=== PATIENT | male | born 1965 | race African-American/Black ===

== ENCOUNTER → 2020-03-03 12:46 | Outpatient (BNV) | payer OTHER, MEDICAID, SELFPAY | PROVIDERS: PCP Internal Medicine; Visit Provider Internal Medicine | DX: C18.2 Malignant neoplasm of ascending colon (principal); C77.2 Secondary and unspecified malignant neoplasm of intra-abdominal lymph nodes; C61 Malignant neoplasm of prostate | CPT/HCPCS: 99212; 99213; 99214; 99215; G2211 ==

== ENCOUNTER 2020-11-03 07:54 | Outpatient (REF) | payer OTHER, SELFPAY ==
--- NOTE | ~2020-11-03 | CT_ITS ---
EXAMINATION: CT ABDOMEN AND PELVIS WITH CONTRAST CLINICAL INFORMATION: Colon cancer. Assess response to treatment. COMPARISON: Previous CT scans of the abdomen and pelvis most recent October 2019 TECHNIQUE: Multidetector volumetric images were obtained from the superior aspect of the liver through the pubic symphysis following administration 85 mL of Omnipaque 350 intravenous contrast. Sagittal and coronal reformatted images were obtained on the technologist's workstation. Oral contrast: Yes This CT examination was performed using dose optimization techniques as appropriate, variously including the following: *Automated exposure control *Adjustment of mA and/or kV according to patient size (this includes techniques or standardized protocols for targeted exams where dose is matched to indication/reason for exam; i.e. extremities or head) *Use of iterative reconstruction technique DLP: 594 mGy-cm FINDINGS: LUNG BASES: The visualized lung bases are unremarkable. LIVER, GALLBLADDER, AND BILIARY TREE: The liver is normal in size, shape, and attenuation. No focal hepatic lesion or biliary ductal dilatation is present. The gallbladder is unremarkable with no evidence of radiopaque gallstones, gallbladder wall thickening, or obvious pericholecystic inflammatory changes. PANCREAS: Unremarkable. SPLEEN: Unremarkable. ADRENAL GLANDS: Unremarkable. KIDNEYS AND URETERS: There are small left renal cysts. Kidneys are otherwise unremarkable. BLADDER: Distended. There may be mild diffuse bladder wall thickening. GASTROINTESTINAL TRACT: There are postsurgical changes following right colectomy. Small and large bowel is otherwise unremarkable. The appendix is unremarkable. The previously identified mesenteric mass is probably representing lymphadenopathy is no longer seen. There is mild residual stranding of the mesenteric fat. ABDOMINAL WALL: No significant hernia is appreciated. LYMPH NODES: No adenopathy. No ascites. VASCULAR: Unremarkable. PELVIC VISCERA: The prostate gland is slightly enlarged measuring 4 x 5.5 cm. OSSEOUS STRUCTURES: Unremarkable. CT/CT abdomen pelvis w con IMPRESSION: Postoperative changes following right colectomy. Previously identified mesenteric masses probably representing lymphadenopathy on most recent exam October 2019 are no longer seen. Left renal cyst. Slightly enlarged prostate gland. Question mild diffuse lateral wall thickening.
[2020-11-03] MEDS: iohexoL 350 MG/ML 100 ML INFUS..BTL IV (11:19)
[2020-11-03] MEDS: Barium Sulfate Oral (Mocha) 450 ML ORAL.SUSP 900 ML PO (11:20)
== END 2020-11-03 07:55 | disposition home or self-care (01) ==
LOC: HO.CT 07:54
PROVIDERS: Visit Provider Internal Medicine
DX: C18.2 Malignant neoplasm of ascending colon (principal); C77.2 Secondary and unspecified malignant neoplasm of intra-abdominal lymph nodes
CPT/HCPCS: 74177; Q9967

== ENCOUNTER 2020-12-30 16:00 | Outpatient (REF) | payer OTHER, SELFPAY ==
[2020-12-30 16:32] LABS: MANUAL DIFF FLAG NO
[2020-12-30 16:41] LABS: Basophils Absolute Auto 0.1 X10*3/uL (0.0-0.2); Basophils Percent Auto 0.9 % (0-2); Eosinophils Absolute Auto 0.3 X10*3/uL (0.0-0.4); Eosinophils Percent Auto 4.7 % (0-4); Hematocrit 43.7 % (42-52); Hemoglobin 14.2 g/dl (14.0-18.0); Imm Gran Abs Auto 0.03 X10*3/uL (0.00-0.03); Imm Gran Pct Auto 0.6 % (0.0-0.4); Lymphocytes Absolute Auto 1.8 X10*3/uL (1.2-4.9); Mean Corpuscular HGB Conc 32.5 g/dl (31.0-36.0); Mean Platelet Volume 9.5 fL (9.4-12.4); Monocytes Absolute Auto 0.5 X10*3/uL (0.1-1.2); Monocytes Percent Auto 8.7 % (2-11); Neutrophils Absolute Auto 2.7 X10*3/uL (2.0-8.3); Neutrophils Percent Auto 51.1 % (45-73); Platelet Count 257 X10*3/uL (160-400); Red Blood Count 5.08 X10*6/uL (4.60-5.80); Red Cell Distribution Width 13.3 % (11.0-16.0); White Blood Count 5.3 X10*3/uL (4.8-10.8)
[2020-12-30 17:11] LABS: Alanine Aminotransferase 22 U/L (0-40); Albumin Level 4.2 g/dL (3.5-5.0); Alkaline Phosphatase 60 U/L (39-117); Anion Gap 16 (12-20); Aspartate Amino Transferase 23 U/L (5-37); Bilirubin Total 0.6 mg/dL (0.0-1.0); Blood Urea Nitrogen 14 mg/dL (9-16); Carbon Dioxide 25 mmol/L (22-29); Chloride 104 mmol/L (96-108); Estimated Glomerular Filt Rate > 60; Glucose Random 82 mg/dL (60-115); Potassium 4.5 mmol/L (3.3-5.1); Sodium 140 mmol/L (135-145); Total Protein 7.2 g/dL (6.5-8.0)
== END 2020-12-30 16:01 | disposition home or self-care (01) ==
LOC: HO.LAB 16:00
PROVIDERS: PCP Internal Medicine; Visit Provider Internal Medicine
DX: C18.2 Malignant neoplasm of ascending colon (principal); C77.2 Secondary and unspecified malignant neoplasm of intra-abdominal lymph nodes
CPT/HCPCS: 36415; 80053; 85025

== ENCOUNTER 2021-08-26 06:03 | Outpatient (REF) | payer OTHER, SELFPAY ==
--- NOTE | ~2021-08-26 | CT_ITS ---
EXAMINATION: CT ABDOMEN AND PELVIS WITH CONTRAST CLINICAL INFORMATION: Colon cancer. Restaging. COMPARISON: Previous CT of the abdomen and pelvis most recent October 2020 TECHNIQUE: Multidetector volumetric images were obtained from the superior aspect of the liver through the pubic symphysis following administration 85 mL of Omnipaque 350 intravenous contrast. Sagittal and coronal reformatted images were obtained on the technologist's workstation. Oral contrast: Yes This CT examination was performed using dose optimization techniques as appropriate, variously including the following: *Automated exposure control *Adjustment of mA and/or kV according to patient size (this includes techniques or standardized protocols for targeted exams where dose is matched to indication/reason for exam; i.e. extremities or head) *Use of iterative reconstruction technique DLP: 810 mGy-cm FINDINGS: LIVER, GALLBLADDER, AND BILIARY TREE: The liver is normal in size, shape, and attenuation. No focal hepatic lesion or biliary ductal dilatation is present. The gallbladder is unremarkable with no evidence of radiopaque gallstones, gallbladder wall thickening, or obvious pericholecystic inflammatory changes. PANCREAS: Unremarkable. SPLEEN: Unremarkable. ADRENAL GLANDS: Unremarkable. KIDNEYS AND URETERS: The kidneys are normal in size, shape, and attenuation. No hydronephrosis, hydroureter, or calculi seen. There are small bilateral renal cysts that are stable.. No imaging follow-up needed. BLADDER: Unremarkable. GASTROINTESTINAL TRACT: There are postsurgical changes from right colectomy. Small and large bowel is otherwise unremarkable. The stomach is unremarkable. ABDOMINAL WALL: There is a small umbilical hernia containing fat. LYMPH NODES: There are small, small bowel mesentery lymph nodes. There is abnormal low attenuation irregularly-shaped soft tissue adjacent to the ileocolic branch of the SMV for example coronal reconstructed image 41 series 15. There is a stranding of the fat in the small bowel mesentery. VASCULAR: Unremarkable. PELVIC VISCERA: The prostate gland is enlarged OSSEOUS STRUCTURES: Unremarkable. CT/CT abdomen pelvis w con IMPRESSION: Stranding of the fat in the small bowel mesentery and small, small bowel mesentery lymph nodes. Angular shaped low-attenuation soft tissue at the root of the small bowel mesentery near the ileocolic branch of the SMV. Bilateral renal cysts. Slightly enlarged prostate gland. Fleischner guidelines were followed.
--- NOTE | ~2021-08-26 | CT_ITS ---
EXAMINATION: CT CHEST WITH CONTRAST CLINICAL INFORMATION: Restaging colon cancer COMPARISON: Previous chest CT most recent October 2019 TECHNIQUE: Multidetector volumetric CT imaging of the chest was obtained after the administration of 85 mL of Omnipaque 350 intravenous contrast without immediate adverse reactions. Axial MIP volume rendering provided. Sagittal and coronal reformatted images were obtained. This CT examination was performed using dose optimization techniques as appropriate, variously including the following: *Automated exposure control *Adjustment of mA and/or kV according to patient size (this includes techniques or standardized protocols for targeted exams where dose is matched to indication/reason for exam; i.e. extremities or head) *Use of iterative reconstruction technique DLP: 484 mGy-cm FINDINGS: CAR EXAMINER: Unremarkable LUNGS: There is a 2 mm right upper lobe nodules axial image 104 series 7 that is stable. The lungs are otherwise clear. MEDIASTINUM: There is a right thyroid nodule that is stable. There are no enlarged hilar or mediastinal lymph nodes. Heart does not appear enlarged. There is no pericardial effusion. There is a right jugular port with tip projecting over the SVC. PLEURA: There is no pleural effusion. No pleural mass or thickening. AXILLA: No lymphadenopathy. UPPER ABDOMEN: See CT of the abdomen and pelvis report from the same day OSSEOUS STRUCTURES: There are degenerative changes of the spine. CT/CT chest w con IMPRESSION: Stable 2 mm right upper lobe nodule. Fleischner guidelines were followed.
[2021-08-26] MEDS: iohexoL 350 MG/ML 100 ML INFUS..BTL IV (08:43)
== END 2021-08-26 06:04 | disposition home or self-care (01) ==
LOC: HO.CT 06:03
PROVIDERS: PCP Internal Medicine; Visit Provider Internal Medicine
DX: C18.9 Malignant neoplasm of colon, unspecified (principal); C77.2 Secondary and unspecified malignant neoplasm of intra-abdominal lymph nodes
CPT/HCPCS: 71260; 74177; Q9967

== ENCOUNTER 2023-10-31 09:53 | Outpatient (AMB) | payer OTHER, SELFPAY ==
--- NOTE | 2023-10-31 09:59 | A.OFFVIS_ITS ---
Intake Visit Reasons: elevated PSA- STAT Appt from Dr. Elias Intake Note: New Patient presents today for initial visit to establish treatment for : Elevated PSA PSA: 10/23/23: 58.09 Urology Medications: none Allergies to Antibiotic: none Blood Thinner: none Oracle Programmer Required: No Accompanied by: Self / Same As Patient Allergies No Known Allergies [No Known Allergies*] Allergy (Verified 10/31/23 10:50) Medication List - Last Reconciled 10/31/23 by LEXII Bowen- bicalutamide 50 mg PO DAILY 30 days finasteride 5 mg PO DAILY 90 days hydrochlorothiazide 12.5 mg PO DAILY levofloxacin 500 mg PO daily 3 days lisinopril 20 mg PO DAILY HPI Comments Details: Toney is a very pleasant 58-year-old male patient of Dr. Weeks. He has a past medical history of colon cancer, iron deficiency anemia, pulmonary embolism, and hypertension. He presents to the office today as a new patient for an elevated PSA. In discussion with the patient today he reports having followed up with Oncology for a bone scan given his history of colon cancer at which time recommendations were made for urology referral due to suspicion for prostate cancer on recent PET/CT scan. A PSA was obtained. These results were reviewed with the patient today 11/04 58.1. He denies any known family history of prostate cancer. NENA performed NENA- smooth, no masses or nodules palpated. When asked he currently denies any bothersome urinary issues or concerns. He denies urinary urgency, urinary frequency, incontinence, nocturia, hematuria, dysuria, foul smelling urine, changes to urinary stream, f lank pain, fever, and or chills. In office urinalysis results reviewed with the patient today. Discussed at length potential causes for elevated PSA. Discussed prostate biopsy. 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 He otherwise offers no other issues or concerns at this time. [facility] Medical History Iron deficiency anemia Colon cancer metastasized to intra-abdominal lymph node Pulmonary emboli Hypertension Surgical History S/P right hemicolectomy Family History Father Throat cancer Mother Breast cancer Social History Household Members: None Housing: House Are you a primary care services manager to a significant other at home: No Do you presently have visiting nurse or other home services: No service: No Current occupational status: employed Current occupation: teacher Review of Systems Const All systems reviewed & are unremarkable except as noted in HPI and below Physical Exam Const General: cooperative, healthy appearing, comfortable, no acute distress, well developed, alert and awake Nutritional Appearance: overweight Orientation/consciousness: patient oriented x3 Limitations: no limitations HEENT Head: Yes normal to inspection, Yes normocephalic and Yes atraumatic Ears: hearing grossly normal bilaterally Eyes General: appearance normal, both eyes and all related structures Neck Neck: Yes normal visual inspection and Yes trachea midline Chest Chest palpation & inspection: normal inspection of the chest Resp Effort & Inspection: normal respiratory effort and able to speak in complete sentences Cardio Rate: regular rate GI Inspection: Yes normal to inspection General: Yes no CVA tenderness Back/Spine/Pelvis Back: no CVA tenderness Skin General skin exam: no rashes or lesions noted Neuro General: patient oriented x3 Extrem General: Yes normal to inspection Psych Appearance: grossly normal and well kempt Mental Status: mental status grossly normal Speech and movement: Normal speech and movement present and Clear speech present Affect: normal affect Attitude: cooperative Thought process: Normal thought process present Thought content: Normal thought content present Insight: Fair insight present (Psych) Judgement: Fair judgement present (Psych) Results AMB Urinalysis, Automated UA Leukoctes 0 Erika/uL Last Edit by Sb Chicas on 10/31/23 10:23 UA Nitrite Negative Last Edit by Sb Chicas on 10/31/23 10:23 UA Urobilinogen 0.2 mg/dL Last Edit by Sb Chcias on 10/31/23 10:23 UA Protein 0 mg/dL Last Edit by Sb Chicas on 10/31/23 10:23 UA pH 5.5 Last Edit by Sb Chicas on 10/31/23 10:23 UA Blood 0 Talha/uL Last Edit by Sb Chicas on 10/31/23 10:23 UA Specific [place] 1.015 Last Edit by Sb Chicas on 10/31/23 10:23 UA Ketone Negative Last Edit by Fadiconnierobinson Valdezluis on 10/31/23 10:23 UA Bilirubin 0 mg/dL Last Edit by Fadiconnierobinson Valdezluis on 10/31/23 10:23 UA Glucose 0 mg/dL Last Edit by Fadijanel Courtneyluis on 10/31/23 10:23 Results Reviewed Results Reviewed: Laboratory Last Values Urine pH (Auto) 5.5 10/31/23 10:14 Specific [place] (Auto) 1.015 10/31/23 10:14 Urine Protein (Auto) 0 mg/dL 10/31/23 10:14 Glucose (UA)(Auto) 0 mg/dL 10/31/23 10:14 Urine Ketones (Auto) Negative 10/31/23 10:14 Urine Blood (Auto) 0 Talha/uL 10/31/23 10:14 Urine Nitrite (Auto) Negative 10/31/23 10:14 Urine Bilirubin (Auto) 0 mg/dL 10/31/23 10:14 Urine Urobilinogen (Auto) 0.2 mg/dL 10/31/23 10:14 Leukocyte Esterase (Auto) 0 Erika/uL 10/31/23 10:14 Assessment & Plan Assessment & Plan (1) Elevated PSA: Code(s): R97.20 - Elevated prostate specific antigen [PSA] Category: Medical Plan: Plan Risks and benefits regarding trans rectal ultrasound with prostate biopsy were discussed.? Options of continued surveillance, no treatment and biopsy were offered. The risks include but are not limited to, urinary tract infection, sepsis, difficulty urinating, bleeding into the rectum or bladder that requires intervention and transfusion,and failure to diagnose prostate cancer. The patient understands the options and the risks involved. They wish to proceed. Printed information was provided to ensure he remains off anticoagulation for the appropriate length of time. He may require cardiology or PCP clearance.? An antibiotic will be administered prior to, and following the procedure Plan In office urinalysis results reviewed with the patient today; as noted above. Patient currently denies any bothersome urinary issues or concerns. He reports be happy with current voiding parameters. Discussed at length potential causes for elevated PSA. Recent PET scan results reviewed with the patient today. Discussed prostate biopsy; this was discussed at length; risks and benefits of this intervention was discussed. All questions were answered Prescription provided for antibiotic therapy day before, day of, and day after surgical procedure. Start bicalutamide as discussed and prescribed Start finasteride as discussed and prescribed. Will arrange for prostate biopsy Follow-up status post doctor's orders; or sooner with any issues, concerns, and or questions. Orders: Orders AMB Urinalysis Automated Today Z13.9 - Encounter for screening, unspecified Medications: New bicalutamide 50 mg PO DAILY 30 days 30 tabs 0RF C61 - Malignant neoplasm of prostate levofloxacin take 1 tablet day before procedure, 1 tablet day of procedure and 1 tablet day after procedure 500 mg PO daily 3 days 3 tabs 0RF finasteride 5 mg PO DAILY 90 days 90 tabs 1RF Patient Instructions: The patient had an opportunity to ask questions regarding the treatment plan. All questions were answered. Physical exam, labs, and imaging were discussed and reviewed in detail. As well as risks, benefits, and discussion of treatment choices. No major barriers to understanding were identified. The patient expressed understanding and agreement with the above treatment plan. The patient was made aware they should contact our office by phone for worsening of their current condition, the appearance of new symptoms, or with any questions or concerns. Compliance is encouraged with any medications and follow up testing that is ordered. It is a privilege to be allowed the opportunity to participate in? your urological care.? Again, if you have any questions or concerns If you have any questions or concerns please do not hesitate to contact me. The office is [phone]. This note is constructed using voice recognition software. While every effort has been made to ensure accuracy jacquard loom weaver errors may have been included. Yours sincerely, MAHSA Bowen Coding Level of Care Code New Pt Level 4 (00621) Diagnoses Elevated PSA R97.20
== END 2023-10-31 10:41 | disposition home or self-care (01) ==
PROVIDERS: PCP Internal Medicine; Visit Provider Nurse Practitioner Family
DX: Z13.9 Encounter for screening, unspecified (principal); R97.20 Elevated prostate specific antigen [PSA]
CPT/HCPCS: 99204

== ENCOUNTER → 2023-10-31 09:53 | Outpatient (BNVA) | payer OTHER, SELFPAY | PROVIDERS: PCP Internal Medicine; Visit Provider Nurse Practitioner Family | DX: R97.20 Elevated prostate specific antigen [PSA] (principal) | CPT/HCPCS: 81003; 99202 ==

== ENCOUNTER 2023-11-30 07:52 | Outpatient (REF) | payer OTHER, SELFPAY ==
[2023-11-30] MEDS: Lidocaine HCl 1 % MPF 5 ML VIAL 15 ML SUBCUT (09:19)
--- NOTE | 2023-11-30 10:08 | W.PM.OPN ---
Operative Note Operative Note Date of Service: 11/30/23 Narrative: PreOperative Diagnosis:? ? Elevated PSA Post Operative Diagnosis:??Elevated PSA Procedure:?1. Transrectal ultrasound guided biopsy of the prostate 12 core 2. Transrectal ultrasound measurement of prostate 3. Transrectal ultrasound guided pudendal nerve block Surgeon:?Dr Mayco Meier Anesthesia:? Local Indications for procedure: Elevated PSA Procedure: Preoperative antibiotics confirmed. After informed consent was verified the patient was placed on the procedure table in left lateral position. Patient identity confirmed. Safety pause time-out performed. Digital rectal exam performed to dilate rectal sphincter, iodine mixed with lubricant jelly 30 cc placed per rectum. Ultrasound probe was placed per rectum. The prostate was visualized. The prostate was measured width 5.18 cm, height 3,72 cm, length 4.30 cm with a volume of 43.3 mL. An ultrasound guided pudendal nerve block was performed using 15 cc of 1% lidocaine. A 12 core biopsy was performed from the left base, left mid, left apex and right base, mid, apex 2 biopsies from each section. The ultrasound probe was removed and digital palpation of the prostate for 1-2 minutes for hemostasis was performed. The patient tolerated the procedure well. Complications: None
== END 2023-11-30 07:53 | disposition home or self-care (01) ==
LOC: HO.US 07:52
PROVIDERS: PCP Internal Medicine; Visit Provider Urology
DX: R97.20 Elevated prostate specific antigen [PSA] (principal)
CPT/HCPCS: 55700; 76942; 88305; 88344

== ENCOUNTER → 2023-11-30 07:52 | Outpatient (BNV) | payer OTHER, SELFPAY | PROVIDERS: PCP Internal Medicine; Visit Provider Urology | DX: R97.20 Elevated prostate specific antigen [PSA] (principal) | CPT/HCPCS: 55700; 76942 ==

== ENCOUNTER 2023-12-14 09:04 | Outpatient (AMB) | payer OTHER, SELFPAY ==
--- NOTE | 2023-12-14 09:09 | A.OFFVIS_ITS ---
Intake Visit Reasons: prostate biopsy results Intake Note: Patient is present for Prostate biopsy and to discuss medications Urology Med: Bicalutamide, Finasteride Patient states he has finished his 30 day Bicalutamide. He would like to know if he should continue finasteride Sign Language Interpreter Required: No Accompanied by: Self / Same As Patient Allergies No Known Allergies [No Known Allergies*] Allergy (Verified 10/31/23 10:50) Medication List - Last Reconciled 12/14/23 by Mayco Meier MD bicalutamide 50 mg PO DAILY 30 days hydrochlorothiazide 12.5 mg PO DAILY levofloxacin 500 mg PO daily 3 days lisinopril 20 mg PO DAILY HPI Comments Details: 12/13/23--Toney is here to discuss prostate biopsy results. Status post prostate biopsy 11/30/23. Prostate adenocarcinoma on the right and left Wilian score 3+3=7 grade group 2. The patient has a history of colon cancer and has had colon resection followed by chemo and immunotherapy he had a PET-CT in October that had uptake in the prostate, no other metastatic lesions noted. He was started on casodex 50 mg by RUBBER TILE FLOOR LAYER. Will order firmagon SC, and refer to Dr Barcenas. Will check MRI in 2 months to eval for extraprostatic extension. Review of chart. 10/31/23--Toney is a very pleasant 58-year-old male patient of Dr. Weeks. He has a past medical history of colon cancer, iron deficiency anemia, pulmonary embolism, and hypertension. He presents to the office today as a new patient for an elevated PSA. In discussion with the patient today he reports having followed up with Oncology for a bone scan given his history of colon cancer at which time recommendations were made for urology referral due to suspicion for prostate cancer on recent PET/CT scan. A PSA was obtained. These results were reviewed with the patient today 11/04-- 58.1 ng/mL. He denies any known family history of prostate cancer. NENA performed NENA- smooth, no masses or nodules palpated. When asked he currently denies any bothersome urinary issues or concerns. He denies urinary urgency, urinary frequency, incontinence, nocturia, hematuria, dysuria, foul smelling urine, changes to urinary stream, flank pain, fever, and or chills. In office urinalysis results reviewed with the patient today. Discussed at length potential causes for elevated PSA. Discussed prostate biopsy. 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 He otherwise offers no other issues or concerns at this time. [facility] Medical History Iron deficiency anemia Colon cancer metastasized to intra-abdominal lymph node Pulmonary emboli Hypertension Surgical History S/P right hemicolectomy Family History Father Throat cancer Mother Breast cancer Social History Household Members: None Housing: House Are you a primary healthcare educator to a significant other at home: No Do you presently have visiting nurse or other home services: No service: No Current occupational status: employed Current occupation: teacher Review of Systems Const All systems reviewed & are unremarkable except as noted in HPI and below Reports no additional complaints Eyes Reports no additional complaints ENT Reports no additional complaints Card Reports no additional complaints Resp Reports no additional complaints GI Reports no additional complaints Reports as per HPI Musc Reports no additional complaints Skin/Breast Reports system reviewed and no additional complaints, except as documented Neuro Reports no additional complaints Psych Reports no additional complaints Endo Reports no additional complaints Gordy/Lymph Reports no additional complaints Aller/Immun Reports no additional complaints Results Reviewed Results Reviewed: Collected: 11/30/23 Location: [facility] Received: 11/30/23 Diagnosis A: Left base lateral: Prostatic adenocarcinoma, Wilian score 3+4=7 (grade group 2) involving 60% of the tissue. B: Left base medial: Prostatic adenocarcinoma, Wilian score 4+3=7 (grade group 3) involving 20% of the tissue. C: Left mid lateral: Prostatic adenocarcinoma, [place] score 3+4=7 (grade group 2) involving 20% of the tissue. D: Left mid medial: Prostatic adenocarcinoma, [place] score 3+4=7 (grade group 2) involving 20% of the tissue. E: Left apex lateral: Atypical small acinar proliferation. F: Left apex medial: Atypical small acinar proliferation. G: Right base lateral: Atypical small acinar proliferation. H: Right base medial: Prostatic adenocarcinoma, [place] score 3+4=7 (grade group 2) involving 15% of the tissue. I: Right mid lateral: Atypical small acinar proliferation. J: Right mid medial: Benign prostatic tissue; negative for malignancy. K: Right apex lateral: Atypical small acinar proliferation. L: Right apex medial: Prostatic adenocarcinoma, [place] score 3+3=6 (grade group 1) involving 15% of the tissue. Data synopsis - Prostate needle biopsy Histologic type: Adenocarcinoma, acinar type Histologic grade: [place] score: 4+3=7 (left base medial) 3+4=7 (left base lateral, left mid lateral and base, right base medial) 3+3=6 (right apex medial) % of pattern 4: 25-30% % of pattern 5: 0% Patient: Toney Canchola [facility]: 58[id number] MR#: [id number] Page 1 of 4 Surgical Pathology [id number] Grade group: 3, 2 and 1 Tumor quantitation: Number cores positive: 6 Total number of cores: 12 % of tissue involved: 12% of all tissue examined Periprostatic fat inv.: Not identified Seminal vesicle inv.: Not identified Perineural inv.: Not identified LVI: Not identified Assessment & Plan Assessment & Plan (1) Elevated PSA: Code(s): R97.20 - Elevated prostate specific antigen [PSA] Category: Medical (2) Adenocarcinoma of prostate: Code(s): C61 - Malignant neoplasm of prostate Category: Medical Plan Status post prostate biopsy 11/30/23. Prostate adenocarcinoma on the right and left Wilian score 3+3=7 grade group 2. The patient has a history of colon cancer and has had colon resection followed by chemo and immunotherapy he had a PET-CT in October that had uptake in the prostate, no other metastatic lesions noted. He was started on casodex 50 mg by RUBBER TILE FLOOR LAYER. Will order firmagon SC, and refer to Dr Barceans. Will check MRI in 2 months to eval for extraprostatic extension. Orders: Orders MR pelvis w con 9 Weeks C61 - Malignant neoplasm of prostate, R97.20 - Elevated prostate specific antigen [PSA] Referrals Urology Referral C61 - Malignant neoplasm of prostate, R97.20 - Elevated prostate specific antigen [PSA] Medications: Refilled bicalutamide 50 mg PO DAILY 30 days 30 tabs 3RF C61 - Malignant neoplasm of prostate Discontinued finasteride Discontinued Reason: Doctor's Order 5 mg PO DAILY 90 days 90 tabs 1RF Patient Instructions: The patient had an opportunity to ask questions regarding treatment plan. The patient expressed understanding and agreement with the above treatment plan. The patient is aware they should contact our office by phone for worsening of their current condition or the appearance of new symptoms. Compliance is encouraged with any medications and followup testing that is ordered. It is a privilege to be allowed the opportunity to participate in the urologic care of your patient. If you have any questions or concerns regarding treatment for the above conditions please do not hesitate to contact me. The office telephone contact is [phone]. This note is constructed in part using voice recognition software. While every effort has been made to ensure accuracy lung splitter errors may have been included. Yours sincerely, Mayco Meier MD Coding Level of Care Code Est Pt Level 4 (28330) Diagnoses Elevated PSA R97.20 Adenocarcinoma of prostate C61
== END 2023-12-14 10:01 | disposition home or self-care (01) ==
LOC: HO.HUSH 09:04
PROVIDERS: PCP Internal Medicine; Visit Provider Urology
DX: R97.20 Elevated prostate specific antigen [PSA] (principal); C61 Malignant neoplasm of prostate
CPT/HCPCS: 99214

== ENCOUNTER → 2023-12-14 09:04 | Outpatient (BNVA) | payer OTHER, SELFPAY | PROVIDERS: PCP Internal Medicine; Visit Provider Urology | DX: C61 Malignant neoplasm of prostate (principal); R97.20 Elevated prostate specific antigen [PSA] | CPT/HCPCS: 99212 ==

== ENCOUNTER 2024-01-02 15:22 | Outpatient (AMB) | payer OTHER, SELFPAY ==
--- NOTE | 2024-01-02 16:18 | AM.OFFVISNUR ---
Intake Visit Reasons: firmagon injection Allergies No Known Allergies [No Known Allergies*] Allergy (Verified 10/31/23 10:50) Office Meds degarelix 120 mg subcutaneous solution Performing Provider: Mayco Meier MD [place] [facility] [place] [facility] Administered by: Zay Rodgers RN on 01/02/24 16:05 Dose Route Admin Location Dispensed Lot Number Expiration Date [facility] Manager Talent 240 mg subcut abdomen 240 mg [id number] 12/12/25 [address]-[address] [facility] Comments: [id number] Patient consented for Firmagon 240 mg SC injection. Medication reconstituted according to laborer wrecking and salvaging instructions. Patient given two SC injections into the right and left side of abdomen. Patient tolerated well. Assessment & Plan Assessment & Plan Orders: Orders AMB Degarelix Injection Practice Supplied Today C61 - Malignant neoplasm of prostate Medications: New degarelix 240 mg subcut ONCE 1 ea 0RF C61 - Malignant neoplasm of prostate
== END 2024-01-02 16:24 | disposition home or self-care (01) ==
PROVIDERS: PCP Internal Medicine; Visit Provider Urology
DX: C61 Malignant neoplasm of prostate (principal)
CPT/HCPCS: 96402

== ENCOUNTER → 2024-01-02 15:22 | Outpatient (BNVA) | payer OTHER, SELFPAY | PROVIDERS: PCP Internal Medicine; Visit Provider Urology | DX: C61 Malignant neoplasm of prostate (principal) | CPT/HCPCS: 96402; J9155 ==

== ENCOUNTER 2024-01-05 10:39 | Outpatient (REF) | payer OTHER, SELFPAY ==
[2024-01-05 10:58] LABS: MANUAL DIFF FLAG NO
[2024-01-05 11:01] LABS: Basophils Percent Auto 0.5 % (0-2); Eosinophils Absolute Auto 0.3 X10*3/uL (0.0-0.4); Eosinophils Percent Auto 6.7 % (0-4); Hematocrit 40.3 % (42.0-52.0); Hemoglobin 13.5 g/dl (14.0-18.0); Imm Gran Abs Auto 0.01 X10*3/uL (0.00-0.03); Imm Gran Pct Auto 0.2 % (0.0-0.4); Lymphocytes Absolute Auto 1.4 X10*3/uL (1.2-4.9); Lymphocytes Percent Auto 33.9 % (20-40); Mean Corpuscular HGB Conc 33.5 g/dl (31.0-36.0); Mean Corpuscular Hemoglobin 28.5 pg (27.0-33.0); Mean Corpuscular Volume 85.2 fL (80.0-98.0); Mean Platelet Volume 9.3 fL (9.4-12.4); Monocytes Absolute Auto 0.4 X10*3/uL (0.1-1.2); Monocytes Percent Auto 9.3 % (2-11); Neutrophils Absolute Auto 2.1 x10*3/uL (2.0-8.3); Neutrophils Percent Auto 49.4 % (45-73); Platelet Count 224 X10*3/uL (160-400); Red Blood Count 4.73 X10*6/uL (4.60-5.80); Red Cell Distribution Width 12.8 % (11.0-16.0); White Blood Count 4.2 X10*3/uL (4.8-10.8)
[2024-01-05 11:22] LABS: Alanine Aminotransferase 20 U/L (0-40); Alkaline Phosphatase 66 U/L (39-117); Anion Gap 13 (12-20); Aspartate Amino Transferase 17 U/L (5-37); Bilirubin Total 0.9 mg/dL (0.0-1.0); Blood Urea Nitrogen 16 mg/dL (9-16); Calcium 9.2 mg/dL (8.4-10.2); Carbon Dioxide 26 mmol/L (22-29); Chloride 105 mmol/L (96-108); Cholesterol 183 mg/dL (<200); Estimated Glomerular Filt Rate > 60; Glucose Random 92 mg/dL (60-115); HDL Cholesterol 54 mg/dL (>40); Iron 99 mcg/dL (45-160); LDL Cholesterol Calculated 114 mg/dL (<100); Percent Iron Saturation 46 % (15-50); Potassium 3.9 mmol/L (3.3-5.1); Sodium 140 mmol/L (135-145); Total Iron Binding Capacity 215 mcg/dL (228-428); Triglycerides 76 mg/dL (<150); Unsaturated Iron Binding 116 ug/dL
[2024-01-05 11:49] LABS: Vitamin B12 564 pg/mL (200-900)
== END 2024-01-05 10:40 | disposition home or self-care (01) ==
LOC: HO.LAB 10:39
PROVIDERS: PCP Internal Medicine; Visit Provider Internal Medicine
DX: I10 Essential (primary) hypertension (principal); D64.9 Anemia, unspecified; Z85.038 Personal history of other malignant neoplasm of large intestine
CPT/HCPCS: 36415; 80053; 80061; 82607; 83540; 85025

== ENCOUNTER 2024-02-06 15:59 | Outpatient (AMB) | payer OTHER, SELFPAY ==
--- NOTE | 2024-02-06 16:19 | MHC.OFFVIS ---
Intake Visit Reasons: 8w/4w injection Intake Note: Patient is present for Firmagon Injection Last Injection was given 01/02/2024 Urology Med: Bicalutamide Antibiotic Allergies: None Blood Thinners:None Last PSA: 10/23/2023- 58.09 Embroidery Assistant Required: No Accompanied by: Self / Same As Patient Allergies No Known Allergies [No Known Allergies*] Allergy (Verified 02/06/24 16:26) HPI Comments Details: Toney is a pleasant male. He is a patient of Dr. Weeks. He seen for the following urologic conditions - prostate cancer Here for follow-up Prostate cancer low-grade, low volume, high-risk PSA Past medical history complicated by colonic resection with chemotherapy and immunotherapy. High-risk PSA 11/04 59 Histologic type: Adenocarcinoma, acinar type Histologic grade: [place] score: 4+3=7 (left base medial 20%) 3+4=7 (left base lateral 60%, left mid lateral 20% and mid medial 20%, right base medial 15%) 3+3=6 (right apex medial 15%) % of tissue involved: 12% of all tissue examined Periprostatic fat inv.: Not identified Seminal vesicle inv.: Not identified Perineural inv.: Not identified LVI: Not identified Staging PET-CT negative, uptake only in prostate. 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 Pulmonary emboli Hypertension Surgical History S/P right hemicolectomy Family History Father Throat cancer Mother Breast cancer Social History Household Members: None Housing: House Are you a primary direct care specialist to a significant other at home: No Do you presently have visiting nurse or other home services: No service: No Current occupational status: employed Current occupation: teacher Review of Systems Const Denies chills and Denies fever(s) Card Reports no additional complaints and Denies syncope Resp Denies cough GI Denies abdominal pain and Denies heartburn Reports as per HPI and Denies change in libido Neuro Denies syncope Psych Denies change in libido Endo Denies change in libido Physical Exam Const General: cooperative, healthy appearing, comfortable and no acute distress Orientation/consciousness: patient oriented x3 HEENT Face and sinus: Yes normal facial exam Mouth: moist mucous membranes Neck Neck: Yes normal visual inspection, Yes full ROM and Yes trachea midline Chest Chest palpation & inspection: normal inspection of the chest Resp Effort & Inspection: normal respiratory effort, able to speak in complete sentences and no respiratory distress GI Inspection: Yes normal to inspection Back/Spine/Pelvis Cervical Spine: normal cervical lordosis Thoracic/Lumbar Spine: thoracic and lumbar spine normal to inspection Skin General skin exam: no rashes or lesions noted Neuro General: patient oriented x3, gait normal, tone normal and moves all extremities Extrem General: Yes normal to inspection and Yes capillary refill normal Office Meds degarelix 80 mg subcutaneous solution Performing Provider: Navid Howell MD Performing Location: [facility] [place] [facility] Administered by: Ernie Avila LPN on 02/06/24 16:39 Dose Route Admin Location Dispensed Lot Number Expiration Date [facility] Baggage Security Checker 80 mg subcut left abdomen 80 mg [id number] 12/12/25 [address]-7 [employer] Assessment & Plan Assessment & Plan (1) Adenocarcinoma of prostate: Code(s): C61 - Malignant neoplasm of prostate Category: Medical Plan Monthly degarelix injection Orders: Orders AMB Degarelix Injection Practice Supplied 02/06/24 C61 - Malignant neoplasm of prostate, R97.20 - Elevated prostate specific antigen [PSA] Patient Instructions: Imaging studies, laboratory and physical exam results were discussed and reviewed in detail. No major barriers to patient understanding were identified. An opportunity to ask questions regarding the treatment plan was provided. All questions were answered. The patient expressed understanding and agreement with the above treatment plan. The patient is aware they should contact our office by phone for worsening of their current condition or the appearance of new urologic symptoms. Compliance is encouraged with any medications and followup testing that is ordered. It is a privilege to participate in the urologic care of your patient. If you have any questions or concerns regarding treatment for the above conditions, or other urologic issues, please do not hesitate to contact me. The office telephone contact is [phone]. This note is constructed using voice recognition software. While every effort has been made to ensure accuracy concrete engineering technician errors may have been included. Yours sincerely, Dr Navid Howell MD, M[facility] - Urology Providers of Expert, Compassionate Care for the Genitourinary System Coding Level of Care Code Est Pt Level 3 (73287) Diagnoses Adenocarcinoma of prostate C61
== END 2024-02-06 16:55 | disposition home or self-care (01) ==
PROVIDERS: PCP Internal Medicine; Visit Provider Nurse Practitioner Family
DX: C61 Malignant neoplasm of prostate (principal)
CPT/HCPCS: 96402; 99213

== ENCOUNTER → 2024-02-06 15:59 | Outpatient (BNVA) | payer OTHER, SELFPAY | PROVIDERS: PCP Internal Medicine; Visit Provider Nurse Practitioner Family | DX: C61 Malignant neoplasm of prostate (principal); R97.20 Elevated prostate specific antigen [PSA] | CPT/HCPCS: 96402; 99212; J9155 ==

== ENCOUNTER 2024-03-05 16:17 | Outpatient (AMB) | payer OTHER, SELFPAY ==
--- NOTE | 2024-03-05 16:28 | AM.OFFVISNUR ---
Intake Visit Reasons: Guanaco(PA Set) Allergies No Known Allergies [No Known Allergies*] Allergy (Verified 02/06/24 16:26) Office Meds degarelix 80 mg subcutaneous solution Performing Provider: Navid Howell MD [place] [facility] [facility] [place] [facility] Administered by: Ernie Avila LPN on 03/05/24 16:28 Dose Route Admin Location Dispensed Lot Number Expiration Date [facility] Marketing And Development Coordinator 80 mg subcut right abd 80 mg [id number] 12/12/25 [address]-1 [facility] Assessment & Plan Assessment & Plan Orders: Orders AMB Degarelix Injection Practice Supplied Today C61 - Malignant neoplasm of prostate, R97.20 - Elevated prostate specific antigen [PSA] Medications: New degarelix 80 mg subcut ONCE 1 ea 0RF C61 - Malignant neoplasm of prostate, R97.20 - Elevated prostate specific antigen [PSA]
== END 2024-03-05 16:26 | disposition home or self-care (01) ==
LOC: HO.HUSH 16:17
PROVIDERS: PCP Internal Medicine; Visit Provider Urology
DX: C61 Malignant neoplasm of prostate (principal); R97.20 Elevated prostate specific antigen [PSA]
CPT/HCPCS: 96402

== ENCOUNTER → 2024-03-05 16:17 | Outpatient (BNVA) | payer OTHER, SELFPAY | PROVIDERS: PCP Internal Medicine; Visit Provider Urology | DX: C61 Malignant neoplasm of prostate (principal); R97.20 Elevated prostate specific antigen [PSA] | CPT/HCPCS: 96402; J9155 ==

== ENCOUNTER 2024-04-03 15:55 | Outpatient (AMB) | payer OTHER, SELFPAY ==
--- NOTE | 2024-04-03 16:29 | AM.OFFVISNUR ---
Intake Visit Reasons: GnRH(PA Set) Allergies No Known Allergies [No Known Allergies*] Allergy (Verified 02/06/24 16:26) Office Meds Eligard (6 month) 45 mg (6 month) subcutaneous syringe Performing Provider: Navid Howell MD [facility] [place] [facility] Administered by: Ernie Avila LPN on 04/03/24 16:29 Dose Route Admin Location Dispensed Lot Number Expiration Date [facility] Tablet Coater 45 mg subcut right arm 45 mg [id number] 07/12/25 94776-232-40 [employer]. Assessment & Plan Assessment & Plan Orders: Orders AMB Leuprolide Injection - Practice Supplied Today C61 - Malignant neoplasm of prostate Medications: New Eligard (6 month) (leuprolide acetate (6 month)) 45 mg subcut ONCE 1 ea 0RF NS C61 - Malignant neoplasm of prostate
== END 2024-04-03 16:28 | disposition home or self-care (01) ==
PROVIDERS: PCP Internal Medicine; Visit Provider Urology
DX: C61 Malignant neoplasm of prostate (principal)

== ENCOUNTER → 2024-04-03 15:55 | Outpatient (BNVA) | payer OTHER, SELFPAY | PROVIDERS: PCP Internal Medicine; Visit Provider Urology | DX: C61 Malignant neoplasm of prostate (principal) | CPT/HCPCS: 96402; J9217 ==

== ENCOUNTER 2024-04-09 08:29 | Outpatient (REF) | payer OTHER, SELFPAY ==
[2024-04-09] MEDS: gadobutroL 10 ML VIAL IVPUSH (09:48)
== END 2024-04-09 08:30 | disposition home or self-care (01) ==
LOC: HO.MRI 08:29
PROVIDERS: PCP Internal Medicine; Visit Provider Urology
DX: R97.20 Elevated prostate specific antigen [PSA] (principal); C61 Malignant neoplasm of prostate
CPT/HCPCS: 72197; A9585

== ENCOUNTER → 2024-04-09 08:29 | Outpatient (BNV) | payer OTHER, SELFPAY | PROVIDERS: PCP Internal Medicine; Visit Provider Radiology Diagnostic Radiology | DX: N20.2 Calculus of kidney with calculus of ureter (principal); R97.20 Elevated prostate specific antigen [PSA] | CPT/HCPCS: 72197 ==

== ENCOUNTER 2024-05-06 13:39 | Outpatient (AMB) | payer OTHER, SELFPAY ==
--- NOTE | 2024-05-06 13:39 | MHC.OFFVIS ---
Intake Visit Reasons: MRI follow up(set) Intake Note: Patient is present for MRI F/U Urology Medication:NONE Antibiotic Allergy:NONE Blood Thinner:NONE Business Development Recruiter Required: No Allergies No Known Allergies [No Known Allergies*] Allergy (Verified 05/06/24 13:39) HPI Comments Details: Toney is a pleasant male. He is a patient of Dr. Weeks. He seen for the following urologic conditions - prostate cancer Telemedicine Evaluation 15 min Consultation Doximity Jelani Video Currently controlled hormonally May benefit from brachytherapy [facility] - 04/06 Sandrajanay six-month Prostate cancer low-grade, low volume, high-risk PSA 12/04 Past medical history complicated by colonic resection with chemotherapy and immunotherapy. High-risk PSA 11/04 59 Biopsy 12/04 Histologic type: Adenocarcinoma, acinar type Histologic grade: [place] score: 4+3=7 (left base medial 20%), 3+4=7 (left base lateral 60%, left mid lateral 20% and mid medial 20%, right base medial 15%), 3+3=6 (right apex medial 15%) % of tissue involved: 12% of all tissue examined Periprostatic fat inv.: Not identified Seminal vesicle inv.: Not identified Perineural inv.: Not identified LVI: Not identified Staging PET-CT negative, uptake only in prostate. Prostate MRI 01/04 - 30 g prostate, chronic prostatitis, PI-RADS 4 anterior tumor. 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 Pulmonary emboli Hypertension Surgical History S/P right hemicolectomy Family History Father Throat cancer Mother Breast cancer Social History Household Members: None Housing: House Are you a primary urgent care physician to a significant other at home: No Do you presently have visiting nurse or other home services: No service: No Current occupational status: employed Current occupation: teacher Review of Systems Const All systems reviewed & are unremarkable except as noted in HPI and below Reports no additional complaints Resp Reports no additional complaints GI Reports no additional complaints Reports as per HPI Musc Reports no additional complaints Physical Exam Telemedicine evaluation Appropriate responses Regular breathing rate and rhythm HEENT Head: Yes normal to inspection Ears: hearing grossly normal bilaterally Eyes General: appearance normal, both eyes and all related structures Neck Neck: Yes normal visual inspection Chest Chest palpation & inspection: normal inspection of the chest Resp Effort & Inspection: normal respiratory effort and able to speak in complete sentences Telehealth Telehealth Telehealth Platform: [employer] Location of provider rendering services: practice address Location of patient: address on file Patient Identification confirmed using: Name, : Yes Telehealth method: video Patient verbally consented to treatment: Yes Patient verbally consented to billing insurance company: Yes Patient informed of any privacy concerns related to visit: Yes Minutes spent on Phone/Video with Pt.: 15 Assessment & Plan Assessment & Plan (1) Adenocarcinoma of prostate: Code(s): C61 - Malignant neoplasm of prostate Category: Medical Plan Two month follow-up PSA and testosterone office Orders: Orders Prostate Specific Antigen 2 Months C61 - Malignant neoplasm of prostate, E11.69 - Type 2 diabetes mellitus with other specified complication, N52.1 - Erectile dysfunction due to diseases classified elsewhere Testosterone, Total 2 Months C61 - Malignant neoplasm of prostate Patient Instructions: Imaging studies, laboratory and physical exam results were discussed and reviewed in detail. No major barriers to patient understanding were identified. An opportunity to ask questions regarding the treatment plan was provided. All questions were answered. The patient expressed understanding and agreement with the above treatment plan. The patient is aware they should contact our office by phone for worsening of their current condition or the appearance of new urologic symptoms. Compliance is encouraged with any medications and followup testing that is ordered. It is a privilege to participate in the urologic care of your patient. If you have any questions or concerns regarding treatment for the above conditions, or other urologic issues, please do not hesitate to contact me. The office telephone contact is [phone]. This note is constructed using voice recognition software. While every effort has been made to ensure accuracy supervisor pleating errors may have been included. Yours sincerely, Dr Navid Howell MD, [facility] - Urology Providers of Expert, Compassionate Care for the Genitourinary System Coding Level of Care Code Tele Est Pt Level 3 (30975) Complex EM visit Add On G2211 Diagnoses Adenocarcinoma of prostate C61
== END 2024-05-06 14:37 | disposition home or self-care (01) ==
LOC: HO.HUSH 13:39
PROVIDERS: PCP Internal Medicine; Visit Provider Urology
DX: C61 Malignant neoplasm of prostate (principal)
CPT/HCPCS: 99213; G2211

== ENCOUNTER → 2024-05-06 13:39 | Outpatient (BNVA) | payer OTHER, SELFPAY | PROVIDERS: PCP Internal Medicine; Visit Provider Urology ==

== ENCOUNTER 2024-07-10 07:40 | Outpatient (REF) | payer OTHER, SELFPAY ==
--- OUTSIDE RECORDS SUMMARY | 2024-07-10 07:45 | XMS_ITS | Clinical Summary ---
Author Organization [facility] Address [address] [place] [address] Care Team Providers Care Residential Gas Heat Technician Name Role Phone Micky Weeks Primary Care Provider [phone] Encounters Date Type Department Care Team Description 05/03/2024 Telephone [facility] [address] [place] [address] [phone] Forestry Instructor: Vern Orta MD from Last 3 Months Social History Tobacco Use Types Packs/Day Years Used Date Smoking Tobacco: Never Assessed Sex and Gender Information Value Date Recorded Sex Assigned at Male 12/31/2023 12:50 PM EDT Legal Sex Male 1:30 PM EDT Gender Identity Male 12/31/2023 12:50 PM EDT Sexual Orientation Straight 12/31/2023 12 :50 PM EDT Plan of Treatment Health Maintenance Due Date Last Done Comments Cologuard 1966 Colon Cancer Screening 1966 Colonoscopy 1966 FOBT / Fit Test 1966 HIV Screening 1966 Hepatitis C Screening 1966 Sigmoidoscopy 1966 Hepatitis B Vaccines (1 of 3 - 19+ 3-dose series) 1985 Zoster Vaccines (1 of 2) 1985 DTaP,Tdap,and Td Vaccines (1 - Tdap) 02/19/1988 Pneumococcal Vaccine: 50+ Ye ars (2 of 2 - PCV) 06/13/2019 06/13/2018 COVID-19 Vaccine (4 - season) 2024 04/06/2021, 09/04/2020, 08/07/2020 Influenza Vaccine (#1) 2024 02/19/2021, 2018 Alcohol/Substance Use Screening 05/14/2024 Depression Screening and Follow-Up 05/14/2024 Social Drivers of Health Majo ual Screening 05/14/2024 RSV Vaccine (60+ years old a nd patients) (1 - 1-dose 75+ series) 2041 Insurance REGGIE Chavez [id number] [employer]ICA[employer] Care Teams Residential Gas Heat Technician Relationship Specialty Start Date End Date Micky Weeks [address] [place] [address] [place] [address] PCP - General Internal Medicine 12/25/23
--- OUTSIDE RECORDS SUMMARY | 2024-07-10 07:45 | XMS_ITS | Referral Summary ---
Author Organization [facility] Address [address] [place] [address] Care Team Providers Care Welder Production Line Arc Name Role Phone Micky Weeks Primary Care Provider [phone] Encounters Date Type Department Care Team Description 05/03/2024 Telephone [facility] [address] [place] [address] [phone] Decorating Equipment Setter: Vern Orta MD from Last 3 Months Social History Tobacco Use Types Packs/Day Years Used Date Smoking Tobacco: Never Assessed Sex and Gender Information Value Date Recorded Sex Assigned at Male 12/31/2023 12:50 PM EDT Legal Sex Male 1:30 PM EDT Gender Identity Male 12/31/2023 12:50 PM EDT Sexual Orientation Straight 12/31/2023 12 :50 PM EDT Plan of Treatment Not on file Insurance [facility] MEDICAID Care Teams Welder Production Line Arc Relationship Specialty Start Date End Date Micky Weeks [address] [place] [address] dr Scott Chavez, [place]GG[place] [id number] PCP - General Internal Medicine 12/25/23
[2024-07-10 09:36] LABS: Prostate Specific Antigen 1.24 ng/mL (<0.05-4.0)
[2024-07-19 09:09] LABS: Testosterone, Total 20 ng/dL (250-1100)
== END 2024-07-10 07:41 | disposition home or self-care (01) ==
LOC: HO.LAB 07:40
PROVIDERS: PCP Internal Medicine; Visit Provider Urology
DX: C61 Malignant neoplasm of prostate (principal); N52.1 Erectile dysfunction due to diseases classified elsewhere; E11.69 Type 2 diabetes mellitus with other specified complication
CPT/HCPCS: 36415; 84153; 84403

== ENCOUNTER 2024-07-28 12:09 | Outpatient (REF) | payer OTHER, SELFPAY ==
--- NOTE | ~2024-07-28 | CT_ITS ---
CLINICAL HISTORY: Surveillance, history of metastatic colon cancer CT abdomen and pelvis with contrast Comparison: None Findings: The lung bases are clear. The gallbladder and solid organs are within normal limits. No renal stones. No bowel obstruction, pneumoperitoneum, or pneumatosis. Changes related to right hemicolectomy. No abnormal colonic wall thickening is appreciated. However, evaluation is limited without oral contrast. No suspicious lymphadenopathy. Urinary bladder is mostly contracted however, with moderate circumferential wall thickening. The bones are intact. IMPRESSION: No acute findings. Postsurgical changes related to right hemicolectomy with unremarkable anastomotic site. Evaluation of the bowel loops are limited due to lack of oral contrast. Moderate circumferential wall thickening of the urinary bladder. Correlate with urinalysis. This document has been electronically signed by: Brendan Lopez MD on 07/29/2024 23:02:35
--- NOTE | ~2024-07-28 | CT_ITS ---
CLINICAL HISTORY: Metastatic colon cancer, surveillance CT chest without contrast Comparison: None Findings: The heart is normal size. The visualized thyroid and mediastinum are unremarkable. Scattered micronodule, the largest within the right lung apex measuring 3 mm in size. The visualized upper abdomen is unremarkable. No aggressive osseous lesion. An age indeterminate anterior compression fracture of the L1 superior endplate with approximately 25% height loss. IMPRESSION: 1. No acute disease. No evidence of metastatic disease within the chest. 2. Scattered micro nodules, the largest 1 within the right lung apex measuring 3 mm in size, Likely represent chronic granulomatous disease. Attention on follow-up is recommended. 3. An age indeterminate anterior compression fracture of the L1 superior endplate with approximately 25% height loss. Correlate with point tenderness. This document has been electronically signed by: Brendan Lopez MD on 07/29/2024 19:12:37
[2024-07-28] MEDS: iohexoL 350 MG/ML 100 ML INFUS..BTL IV (13:12)
--- OUTSIDE RECORDS SUMMARY | 2024-07-28 14:21 | XMS_ITS | Clinical Summary ---
Author Organization [facility] Address [address] [place] [address] Care Team Providers Care Provider Scribe Name Role Phone Micky Weeks Primary Care Provider [phone] Encounters Date Type Department Care Team Description 05/03/2024 Telephone [facility] [address] [place] [address] [phone] Ophthalmology Assistant: Vern Orta MD from Last 3 Months [...] 1-dose 75+ series) 2041 Insurance REGGIE Chavez [id number] [employer] Care Teams Provider Scribe Relationship Specialty Start Date End Date Micky Weeks [address] [place] [address] [place] [address] PCP - General Internal Medicine 12/25/23
--- OUTSIDE RECORDS SUMMARY | 2024-07-28 14:21 | XMS_ITS | Referral Summary ---
Author Organization [facility] Address [address] [place] [address] Care Team Providers Care Cigarette Inspector Name Role Phone Micky Weeks Primary Care Provider [phone] Encounters Date Type Department Care Team Description 05/03/2024 Telephone [facility] [address] [place] [address] [phone] Pot Reliner: Vern Orta MD from Last 3 Months Social History Tobacco Use Types Packs/Day Years Used Date Smoking Tobacco: Never Assessed Sex and Gender Information Value Date Recorded Sex Assigned at Male 12/31/2023 12:50 PM EDT Legal Sex Male 1:30 PM EDT Gender Identity Male 12/31/2023 12:50 PM EDT Sexual Orientation Straight 12/31/2023 12 :50 PM EDT Plan of Treatment Not on file Insurance [facility] MEDICAID Care Teams Cigarette Inspector Relationship Specialty Start Date End Date Micky Weeks [address] [place] [address] dr Scott Chavez, [place] [phone] PCP - General Internal Medicine 12/25/23
== END 2024-07-28 12:10 | disposition home or self-care (01) ==
LOC: HO.CT 12:09
PROVIDERS: PCP Internal Medicine; Visit Provider Internal Medicine
DX: C18.2 Malignant neoplasm of ascending colon (principal); C77.2 Secondary and unspecified malignant neoplasm of intra-abdominal lymph nodes
CPT/HCPCS: 71250; 74177; Q9967

== ENCOUNTER → 2024-07-28 12:10 | Outpatient (BNV) | payer OTHER, SELFPAY | PROVIDERS: PCP Internal Medicine; Visit Provider Student in an Organized Health Care Education/Training Program | DX: Z85.038 Personal history of other malignant neoplasm of large intestine (principal) | CPT/HCPCS: 71250; 74177 ==

== ENCOUNTER 2024-09-10 11:01 | Outpatient (AMB) | payer OTHER, SELFPAY ==
--- NOTE | 2024-09-10 11:37 | MHC.OFFVIS ---
Intake Visit Reasons: Followup labs Intake Note: Patient is present for LABS F/U Urology Medication:NONE Antibiotic Allergy:NONE Blood Thinner:NONE Chief Radiation Therapist Required: No Allergies No Known Allergies [No Known Allergies*] Allergy (Verified 09/10/24 11:37) HPI Comments Details: Toney is a pleasant male. He is a patient of Dr. Weeks. He seen for the following urologic conditions - prostate cancer Follow-up visit Will receive 2nd GnRH in September At that point will review for external beam radiation Did not receive external beam radiation during colorectal treatment PSA - 07/08 1.25, T 20 GNRH - 04/06 Jes six-month Prostate cancer low-grade, low volume, high-risk PSA 12/04 Past medical history complicated by colonic resection with chemotherapy and immunotherapy. High-risk PSA 11/04 59 Biopsy 12/04 Histologic type: Adenocarcinoma, acinar type Histologic grade: Wilian score: 4+3=7 (left base medial 20%), 3+4=7 (left base lateral 60%, left mid lateral 20% and mid medial 20%, right base medial 15%), 3+3=6 (right apex medial 15%) % of tissue involved: 12% of all tissue examined Periprostatic fat inv.: Not identified Seminal vesicle inv.: Not identified Perineural inv.: Not identified LVI: Not identified Staging PET-CT negative, uptake only in prostate. Prostate MRI 01/04 - 30 g prostate, chronic prostatitis, PI-RADS 4 anterior tumor. 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 Pulmonary emboli Hypertension Surgical History S/P right hemicolectomy Family History Father Throat cancer Mother Breast cancer Social History Household Members: None Housing: House Are you a primary daycare teacher to a significant other at home: No Do you presently have visiting nurse or other home services: No service: No Current occupational status: employed Current occupation: teacher Review of Systems Const Denies chills and Denies fever(s) Card Reports no additional complaints and Denies syncope Resp Denies cough GI Denies abdominal pain and Denies heartburn Reports as per HPI and Denies change in libido Neuro Denies syncope Psych Denies change in libido Endo Denies change in libido Physical Exam Const General: cooperative, healthy appearing, comfortable and no acute distress Orientation/consciousness: patient oriented x3 HEENT Face and sinus: Yes normal facial exam Mouth: moist mucous membranes Neck Neck: Yes normal visual inspection, Yes full ROM and Yes trachea midline Chest Chest palpation & inspection: normal inspection of the chest Resp Effort & Inspection: normal respiratory effort, able to speak in complete sentences and no respiratory distress GI Inspection: Yes normal to inspection Back/Spine/Pelvis Cervical Spine: normal cervical lordosis Thoracic/Lumbar Spine: thoracic and lumbar spine normal to inspection Skin General skin exam: no rashes or lesions noted Neuro General: patient oriented x3, gait normal, tone normal and moves all extremities Extrem General: Yes normal to inspection and Yes capillary refill normal Assessment & Plan Assessment & Plan (1) Adenocarcinoma of prostate: Code(s): C61 - Malignant neoplasm of prostate Category: Medical Plan Follow-up 1 month with repeat labs and GnRH At that point will discuss planning for either external beam radiation or brachytherapy Orders: Orders Testosterone, Total 1 Month C61 - Malignant neoplasm of prostate Prostate Specific Antigen 1 Month C61 - Malignant neoplasm of prostate Medications: Discontinued bicalutamide Discontinued Reason: Patient Completed Course 50 mg PO DAILY 30 days 30 tabs 3RF C61 - Malignant neoplasm of prostate Patient Instructions: This note is constructed using voice recognition software. While every effort has been made to ensure accuracy sales effectiveness manager errors may have been included. Imaging studies, laboratory and physical exam results were discussed and reviewed in detail. No major barriers to patient understanding were identified. An opportunity to ask questions regarding the treatment plan was provided. All questions were answered. The patient expressed understanding and agreement with the above treatment plan. The patient is aware they should contact our office by phone for worsening of their current condition or the appearance of new urologic symptoms. Compliance is encouraged with any medications and followup testing that is ordered. It is a privilege to participate in the urologic care of your patient. If you have any questions or concerns regarding treatment for the above conditions, or other urologic issues, please do not hesitate to contact me. The office telephone contact is [phone]. Sincerely, Dr Navid Howell MD, [facility] - Urology Compassionate Specialist Care for the Genitourinary System Coding Level of Care Code Est Pt Level 3 (93358) Complex EM visit Add On G2211 Diagnoses Adenocarcinoma of prostate C61
--- OUTSIDE RECORDS SUMMARY | 2024-09-10 12:38 | XMS_ITS | Clinical Summary ---
Author Organization [facility] Address [address] [place] [address] Care Team Providers Care Charter School Executive Director Name Role Phone Micky Weeks Primary Care Provider [phone] Social History Tobacco Use Types Packs/Day Years [...] (4 - season) 2024 04/06/2021, 09/04/2020, 08/07/2020 Alcohol/Substance Use Screening 05/14/2024 Depression Screening and Follow-Up 05/14/2024 Social Drivers of Health Majo ual Screening 05/14/2024 Influenza Vaccine (Season Ended) 2025 02/20/20 21, 06/13/2018 RSV Vaccine (60+ years old a nd patients) (1 - 1-dose 75+ series) 2041 [place] [id number] [facility] MEDICAID Care Teams Charter School Executive Director Relationship Specialty Start Date End Date Micky Weeks [address] [place] [address] [place] [address] PCP - General Internal Medicine 12/25/23
--- OUTSIDE RECORDS SUMMARY | 2024-09-10 12:38 | XMS_ITS | Referral Summary ---
Author Organization [facility] Address [address] [place] [address] Care Team Providers Care Restaurant Crew Person Name Role Phone Micky Weeks Primary Care Provider [phone] Social History Tobacco Use Types Packs/Day Years Used Date Smoking Tobacco: Never Assessed Sex and Gender Information Value Date Recorded Sex Assigned at Male 12/31/2023 12:50 PM EDT Legal Sex Male 1:30 PM EDT Gender Identity Male 12/31/2023 12:50 PM EDT Sexual Orientation Straight 12/31/2023 12 :50 PM EDT Plan of Treatment Not on file Insurance [facility] MEDICAID Care Teams Restaurant Crew Person Relationship Specialty Start Date End Date Micky Weeks [address] [place] [address] [place] [address] PCP - General Internal Medicine 12/25/23
== END 2024-09-10 12:23 | disposition home or self-care (01) ==
PROVIDERS: PCP Internal Medicine; Visit Provider Urology
DX: C61 Malignant neoplasm of prostate (principal)
CPT/HCPCS: 99213; G2211

== ENCOUNTER → 2024-09-10 11:01 | Outpatient (BNVA) | payer OTHER, SELFPAY | PROVIDERS: PCP Internal Medicine; Visit Provider Urology | DX: C61 Malignant neoplasm of prostate (principal) | CPT/HCPCS: 99212 ==

== ENCOUNTER 2024-09-17 15:42 | Outpatient (AMB) | payer OTHER, SELFPAY ==
[2024-09-17 15:12] VITALS: PULSE 90; TEMP 36.3; O2SAT 99
--- NOTE | 2024-09-17 15:12 | MHC.PC.OV ---
Vital Signs 09/17/24 15:12 Pulse 90 Pulse Source Pulse Oximeter Temp 97.4 F Temp Source Axillary Pulse Oximetry (%) 99 Oxygen Delivery Method Room Air Intake Visit Reasons: Routine Division Merchandise Manager Required: No Accompanied by: Self / Same As Patient Allergies No Known Allergies [No Known Allergies*] Allergy (Verified 09/26/24 13:51) Medication List - Last Reconciled 09/26/24 by Fredy Kaur MD hydrochlorothiazide 12.5 mg PO DAILY lisinopril 20 mg PO DAILY Tobacco use date assessed: 09/17/24 Dental Screening Dental Screen Date: 09/17/24 Did you have a dental visit in the last 12 months?: Yes Did you have a dental problem in the last 6 months where you did not have access to dental care?: No HPI Routine HPI Details 59-year-old male presents to discuss his chronic medical conditions. Currently at baseline state of health. Patient has history of high blood pressure and elevated cholesterol. In addition he has a diagnosis of prostate cancer and cancer of the colon. Following up with an oncologist regularly. 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 Pulmonary emboli Hypertension Surgical History History of colonoscopy (~06/14/18) S/P right hemicolectomy Family History Father Throat cancer Mother Breast cancer Social History Household Members: None Housing: House Are you a primary primary care nurse practitioner to a significant other at home: No Do you presently have visiting nurse or other home services: No Patient Tobacco Use Status: Never used Tobacco e-Cigarette/Vaping Use: Never Used service: No Current occupational status: employed Current occupation: teacher Cognitive needs: No Hearing needs: No Vision needs: No Questionnaire PHQ-9 Over the last 2 weeks, how often have you been bothered by any of the following problems? 1. Little interest or pleasure in doing things: not at all 2. Feeling down, depressed, or hopeless: not at all 3. Trouble falling or staying asleep, or sleeping too much: not at all 4. Feeling tired or having little energy: not at all 5. Poor appetite or overeating: not at all 6. Feeling bad about yourself - or that you are a failure or have let yourself or your family down: not at all 7. Trouble concentrating on things, such as reading the newspaper or watching television: not at all 8. Moving or speaking so slowly that other people could have noticed. Or the opposite - being so fidgety or restless that you have been moving around a lot more than usual: not at all 9. Thoughts that you would be better off or of hurting yourself in some way: not at all Total score: 0 Source: Developed by Drs. Gabe Aguilar, Katharine Lake, Russell Olivo and colleagues, with an educational catie from [employer]. Thrive Questionnaire Date Thrive assessed: 09/17/24 I am a: Patient Within the past 12 months, did the food you bought not last and you didn't have the money to get more?: Never true Within the past 12 months, did you worry whether your food would run out before you got money to buy more?: Never true Do you have trouble paying for medicines?: No Do you have trouble getting transportation to medical appointments?: No Do you have trouble paying your heating and electricity bill?: No Do you have trouble taking care of your child, family member or friend?: No Do you have trouble with day-to-day activities such as bathing, preparing meals, shopping, managing finances, etc.?: No Are you currently unemployed and looking for a job?: No Are you interested in more education?: No THRIVE Score: 0 AUDIT C Alcohol Use Questionnaire (AUDIT-C) 1. How often do you have a drink containing alcohol?: Never 3. How often do you have six or more drinks on one occasion?: Never Total Score: 0 GÓMEZ-7 AMB Questionnaire GÓMEZ-7 Date GÓMEZ - 7 assessed: 09/17/24 Feeling nervous, anxious, or on edge: 0 = Not at all Not being able to stop or control worryin = Not at all Worrying too much about different things: 0 = Not at all Trouble relaxin = Not at all Being so restless that it is hard to sit still: 0 = Not at all Becoming easily annoyed or irritable: 0 = Not at all Feeling afraid as if something awful might happen: 0 = Not at all Total GÓMEZ-7 score (0-4 normal; 5-9 mild; 10-14 moderate; 15-21 severe): 0 Source: Developed by Drs. Gabe Aguilar, Katharine Lake, Russell Olivo and colleagues, with an educational catie from [employer]. Physical exam (Primary Care) Vital Signs: Last Vital Signs Temp 97.4 F 09/17/24 15:12 Pulse 90 09/17/24 15:12 Pulse Ox 99 09/17/24 15:12 Oxygen Delivery Method Room Air 09/17/24 15:12 Tobacco/Smoking Status: Tobacco use Status Tobacco use date assessed 09/17/24 09/17/24 15:13 Patient Tobacco Use Status Never used Tobacco 09/17/24 15:13 e-Cigarette/Vaping Use Never Used 09/17/24 15:13 PHQ-9: PHQ-9 Score PHQ-9: Total score 0 09/17/24 15:53 Thrive Assessment: Date of Thrive Assessment Date Thrive assessed 09/17/24 09/17/24 15:13 Const General: cooperative and healthy appearing Nutritional Appearance: well nourished Orientation/consciousness: patient oriented x3 Limitations: no limitations HENMT Head: Yes normal to inspection Eyes General: appearance normal, both eyes and all related structures Neck Neck: Yes normal visual inspection Chest Chest palpation & inspection: normal palpation of entire chest wall Resp Effort & Inspection: normal respiratory effort Neuro General: patient oriented x3 Coding Level of Care Code New Pt Level 4 (48191) Complex EM visit Add On G2211 Diagnoses Hypertension I10 Assessment & Plan Assessment & Plan (1) Hypertension: Code(s): I10 - Essential (primary) hypertension Category: Medical Plan: Condition is stable. Continue current medications.
--- OUTSIDE RECORDS SUMMARY | 2024-09-17 16:25 | XMS_ITS | Clinical Summary ---
Author Organization [facility] Address [address] [place] [address] Care Team Providers Care Double End Tenoner Setter Name Role Phone Micky Weeks Primary Care Provider Social History Tobacco Use Types Packs/Day Years [...] (1 - 1-dose 75+ series) [address] [place] [id number] [facility] MEDICAID Care Teams Double End Tenoner Setter Relationship Specialty Start Date End Date Micky Weeks [address] [place] [address] [place] [address] PCP - General Internal Medicine 12/25/23
--- OUTSIDE RECORDS SUMMARY | 2024-09-17 16:25 | XMS_ITS | Referral Summary ---
Author Organization [facility] Address [address] [place] [address] Care Team Providers Care Aircraft Charter Dispatcher Name Role Phone Micky Weeks Primary Care Provider [phone] Social History Tobacco Use Types Packs/Day Years Used Date Smoking Tobacco: Never Assessed Sex and Gender Information Value Date Recorded Sex Assigned at Male 12/31/2023 12:50 PM EDT Legal Sex Male 1:30 PM EDT Gender Identity Male 12/31/2023 12:50 PM EDT Sexual Orientation Straight 12/31/2023 12 :50 PM EDT Plan of Treatment Not on file Insurance [facility] MEDICAID Care Teams Aircraft Charter Dispatcher Relationship Specialty Start Date End Date Micky Weeks [address] [place] [address] [place] [address] PCP - General Internal Medicine 12/25/23
== END 2024-09-17 16:00 | disposition home or self-care (01) ==
LOC: HO.HMCHD 15:43
PROVIDERS: PCP Internal Medicine; Visit Provider Internal Medicine
DX: I10 Essential (primary) hypertension (principal)

== ENCOUNTER → 2024-09-17 15:42 | Outpatient (BNVA) | payer OTHER, SELFPAY | PROVIDERS: PCP Internal Medicine; Visit Provider Internal Medicine | DX: I10 Essential (primary) hypertension (principal); C61 Malignant neoplasm of prostate; C18.9 Malignant neoplasm of colon, unspecified | CPT/HCPCS: 99202 ==

== ENCOUNTER 2024-10-01 14:10 | Outpatient (REF) | payer OTHER, SELFPAY ==
--- OUTSIDE RECORDS SUMMARY | 2024-10-01 14:35 | XMS_ITS | Clinical Summary ---
Author Organization [facility] Address [address] [place] [address] Care Team Providers Care Digital Imaging Specialist Name Role Phone Micky Weeks Primary Care Provider [phone] Social History Tobacco Use Types Packs/Day Years [...] (1 - 1-dose 75+ series) [address] [place] [id number] [facility] MEDICAID Care Teams Digital Imaging Specialist Relationship Specialty Start Date End Date Micky Weeks [address] [place] [address] [place] [address] PCP - General Internal Medicine 12/25/23
--- OUTSIDE RECORDS SUMMARY | 2024-10-01 14:35 | XMS_ITS | Referral Summary ---
Author Organization [facility] Address [address] [place] [address] Care Team Providers Care Veneer Production Machine Operator Name Role Phone Micky Weeks Primary Care Provider [phone] Social History Tobacco Use Types Packs/Day Years Used Date Smoking Tobacco: Never Assessed Sex and Gender Information Value Date Recorded Sex Assigned at Male 12/31/2023 12:50 PM EDT Legal Sex Male 1:30 PM EDT Gender Identity Male 12/31/2023 12:50 PM EDT Sexual Orientation Straight 12/31/2023 12 :50 PM EDT Plan of Treatment Not on file Insurance [facility] MEDICAID Care Teams Veneer Production Machine Operator Relationship Specialty Start Date End Date Micky Weeks [address] [place] [address] [place] [address] PCP - General Internal Medicine 12/25/23
[2024-10-01 15:52] LABS: Prostate Specific Antigen 3.13 ng/mL (<0.05-4.0)
[2024-10-06 01:18] LABS: Testosterone, Total 17 ng/dL (250-1100)
== END 2024-10-01 14:11 | disposition home or self-care (01) ==
LOC: HO.LAB 14:10
PROVIDERS: PCP Internal Medicine; Visit Provider Urology
DX: C61 Malignant neoplasm of prostate (principal)
CPT/HCPCS: 36415; 84153; 84403

== ENCOUNTER 2024-10-08 15:26 | Outpatient (AMB) | payer OTHER, SELFPAY ==
--- NOTE | 2024-10-08 15:47 | A.OFFVIS_ITS ---
Intake Visit Reasons: 4W GNRH/LABS(LABS?) Intake Note: Patient is present for 4W GNRH/LABS Urology Medication:NONE Antibiotic Allergy:NONE Blood Thinner:NONE Truck Driver Helper Required: No Allergies No Known Allergies [No Known Allergies*] Allergy (Verified 10/08/24 15:48) HPI Comments Details: Toney is a pleasant male. He is a patient of Dr. Weeks. He seen for the following urologic conditions - prostate cancer Follow-up visit Second GNRH given today If PSA stays control may have assessment for radiation 10/05 PSA 3.1 T 17 07/08 1.25, T 20 [facility] - 04/06 Jes six-month Prostate cancer low-grade, low volume, high-risk PSA 12/04 Past medical history complicated by colonic resection with chemotherapy and immunotherapy. High-risk PSA 11/04 59 Biopsy 12/04 Histologic type: Adenocarcinoma, acinar type Histologic grade: Omaha score: 4+3=7 (left base medial 20%), 3+4=7 (left base lateral 60%, left mid lateral 20% and mid medial 20%, right base medial 15%), 3+3=6 (right apex medial 15%) % of tissue involved: 12% of all tissue examined Periprostatic fat inv.: Not identified Seminal vesicle inv.: Not identified Perineural inv.: Not identified LVI: Not identified Staging PET-CT negative, uptake only in prostate. Prostate MRI 01/04 - 30 g prostate, chronic prostatitis, PI-RADS 4 anterior tumor. 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 Pulmonary emboli Hypertension Surgical History (Updated 10/08/24 @ 14:43 by Kailey Zaragoza MD) History of colonoscopy (~06/14/18) S/P right hemicolectomy Family History Father Throat cancer Mother Breast cancer Social History Household Members: None Housing: House Are you a primary nurse behavioral health care to a significant other at home: No Do you presently have visiting nurse or other home services: No Patient Tobacco Use Status: Never used Tobacco e-Cigarette/Vaping Use: Never Used service: No Current occupational status: employed Current occupation: teacher Cognitive needs: No Hearing needs: No Vision needs: No Review of Systems Const Denies chills and Denies fever(s) Card Reports no additional complaints and Denies syncope Resp Denies cough GI Denies abdominal pain and Denies heartburn Reports as per HPI and Denies change in libido Neuro Denies syncope Psych Denies change in libido Endo Denies change in libido Physical Exam Const General: cooperative, healthy appearing, comfortable and no acute distress Orientation/consciousness: patient oriented x3 HEENT Face and sinus: Yes normal facial exam Mouth: moist mucous membranes Neck Neck: Yes normal visual inspection, Yes full ROM and Yes trachea midline Chest Chest palpation & inspection: normal inspection of the chest Resp Effort & Inspection: normal respiratory effort, able to speak in complete sentences and no respiratory distress GI Inspection: Yes normal to inspection Back/Spine/Pelvis Cervical Spine: normal cervical lordosis Thoracic/Lumbar Spine: thoracic and lumbar spine normal to inspection Skin General skin exam: no rashes or lesions noted Neuro General: patient oriented x3, gait normal, tone normal and moves all extremities Extrem General: Yes normal to inspection and Yes capillary refill normal Office Meds Eligard (6 month) 45 mg (6 month) subcutaneous syringe Performing Provider: Navid Howell MD [facility] Administered by: Ernie Avila LPN on 10/08/24 15:59 Dose Route Admin Location Dispensed Lot Number Expiration Date [facility] Cutter Operator Brick 45 mg subcut right arm 45 mg [id number] 01/12/26 82428-841-26 Yummy77. Assessment & Plan Assessment & Plan (1) Adenocarcinoma of prostate: Code(s): C61 - Malignant neoplasm of prostate Category: Medical Plan Three-month follow-up lab work Orders: Orders AMB Leuprolide Injection - Practice Supplied 10/08/24 C61 - Malignant neoplasm of prostate Prostate Specific Antigen 3 Months C61 - Malignant neoplasm of prostate Testosterone, Total 3 Months C61 - Malignant neoplasm of prostate Patient Instructions: This note is constructed using voice recognition software. While every effort has been made to ensure accuracy epic beacon specialists errors may have been included. Imaging studies, laboratory and physical exam results were discussed and reviewed in detail. No major barriers to patient understanding were identified. An opportunity to ask questions regarding the treatment plan was provided. All q uestions were answered. The patient expressed understanding and agreement with the above treatment plan. The patient is aware they should contact our office by phone for worsening of their current condition or the appearance of new urologic symptoms. Compliance is encouraged with any medications and followup testing that is ordered. It is a privilege to participate in the urologic care of your patient. If you have any questions or concerns regarding treatment for the above conditions, or other urologic issues, please do not hesitate to contact me. The office telephone contact is [phone]. Sincerely, Dr Navid Howell MD, [facility] - Urology Compassionate Specialist Care for the Genitourinary System Coding Level of Care Code Est Pt Level 3 (97371) Complex EM visit Add On G2211 Diagnoses Adenocarcinoma of prostate C61
--- OUTSIDE RECORDS SUMMARY | 2024-10-08 16:01 | XMS_ITS | Clinical Summary ---
Author Organization [facility] Address [address] [place] [address] Care Team Providers Care Digital Media Producer Name Role Phone Micky Weeks Primary Care Provider [phone] Social History Tobacco Use Types Packs/Day Years [...] (1 - 1-dose 75+ series) 2041 [id number] [facility] MEDICAID Care Teams Digital Media Producer Relationship Specialty Start Date End Date Micky Weeks [address] [place] [address] [place] [address] PCP - General Internal Medicine 12/25/23
== END 2024-10-08 16:29 | disposition home or self-care (01) ==
LOC: HO.HUSH 15:27
PROVIDERS: PCP Internal Medicine; Visit Provider Urology
DX: C61 Malignant neoplasm of prostate (principal)
CPT/HCPCS: 99213; G2211

== ENCOUNTER → 2024-10-08 15:26 | Outpatient (BNVA) | payer OTHER, SELFPAY | PROVIDERS: PCP Internal Medicine; Visit Provider Urology | DX: C61 Malignant neoplasm of prostate (principal) | CPT/HCPCS: 96402; 99212; J9217 ==

== ENCOUNTER 2025-01-05 07:19 | Outpatient (REF) | payer OTHER, SELFPAY ==
--- OUTSIDE RECORDS SUMMARY | 2025-01-05 07:22 | XMS_ITS | Encounter Summary ---
Author Organization [facility] Address [address] [facility] [address] [place] [address] Phone Care Team Providers Care Sampler Radioactive Waste Name Role Phone Micky Weeks MD Unavailable [phone] Micky Weeks MD Primary Care Provider Kailey Zaragoza MD Unavailable [phone] Cristo Santiago MD Unavailable [phone] Self-Referred, Patient Unavailable Unavailab le Encounter Details Date Type Department Care Team (Late st Contact Info) Description 12/05/2019 Orders Only Laboratory Services, [facility] [place] [address] [facility]nd [place] [address] Cristo Santiago MD [address] [place] [address] [email or web address] Social History Tobacco Use Types Packs/Day Years Used Date Smoking Tobacco: Never Smokeless Tobacco: Never Sex and Gender Information Value Date Recorded Sex Assigned at Not on file Legal Sex Male 9:10 AM EDT Gender Identity Not on file Sexual Orientation Not on file documented as of this encounter Plan of Treatment Not on file documented as of this encounter Results * CT Abdomen/Pelvis Outside (No Interpretation) (10/28/2019 12:05 AM EDT) Other Narrative ROSINA_PAMELA - 12/05/2019 2:02 PM EDT This study is for PACS storage only and not for interpretation. us Cristo Santiago MD IMG OUTSIDE IMAGING W/OUT I NTERPRETATION Final Result Performing Organization Address [facility] de Phone Number PERCEDWIN_PAMELA * CT Chest Outside (No Interpretation) (10/28/2019 12:00 AM EDT) Other Narrative PERCIPIO_BW - 12/05/2019 2:02 PM EDT This study is for PACS storage only and not for interpretation. us Cristo Santiago MD IMG OUTSIDE IMAGING W/OUT I NTERPRETATION Final Result Performing Organization Address [facility] de Phone Number ROSINA_ANDREWH * CT Abdomen/Pelvis Outside (No Interpretation) (04/11/2019 12:00 AM EST) Other Narrative PERCIPIO_DFCI - 12/05/2019 2:02 PM EDT This study is for PACS storage only and not for interpretation. us Cristo Santiago MD IMG OUTSIDE IMAGING W/OUT I NTERPRETATION Final Result Performing Organization Address [facility] de Phone Number PERCEDWIN_DFCI * CT Chest Outside (No Interpretation) (08/27/2018 12:00 AM EDT) Other Narrative PERCCHAPO_BW - 12/05/2019 2:02 PM EDT This study is for PACS storage only and not for interpretation. us Cristo Santiago MD IMG OUTSIDE IMAGING W/OUT I NTERPRETATION Final Result Performing Organization Address City/[facility] Co de Phone Number ROSINA_MARIO documented in this encounter Visit Diagnoses Not on filedocumented in this encounter Care Teams Sampler Radioactive Waste Relationship Specialty Start Date End Date Micky Weeks MD [address] [place] [address] Dr Woods, REGGIE [address] PCP - General Internal Medicine 11/04/19 Micky Weeks MD [address] [place] [address] [facility] [place] [address] Internal Medicine 11/04/19 Kailey Zaragoza MD [address] [place] [address] [email or web address] Referring Physician Hematology and Oncology 11/25/19 Cristo Santiago MD [address] [place] [id number] [email or web address] Primary Oncologist Medical Oncology 11/27/19 Self-Referred, Patient 12/02/19 documented as of this encounter Additional Source Comments The information contained in this document represents components of the legal health record. It is not the complete legal health record.[facility]
--- OUTSIDE RECORDS SUMMARY | 2025-01-05 07:22 | XMS_ITS | Clinical Summary ---
Author Organization [facility] Address [address] [place] [address] Care Team Providers Care Preschool Aide Name Role Phone Micky Weeks Primary Care Provider [phone] Social History Tobacco Use Types Packs/Day Years [...] Health Majo ual Screening 05/14/2024 Influenza Vaccine (#1) 2025 02/19/2021, 2018 RSV Vaccine (60+ years old a nd patients) (1 - 1-dose 75+ series) 20[address] [place] [id number] [facility] MEDICAID Care Teams Preschool Aide Relationship Specialty Start Date End Date Micky Weeks [address] [place] [address] [place] [address] PCP - General Internal Medicine 12/25/23
--- OUTSIDE RECORDS SUMMARY | 2025-01-05 07:22 | XMS_ITS | Patient Health Record ---
Author Organization [facility] Address [address] [place] [address] Care Team Providers Care Cat Swamper Name Role Phone Micky (RETIRED) Micky CARDOZO Primary Care Provide r Unavailable Derrick Pandey Jr Unavailable NIMO STEINER Unavailable Unavailable Reason For Referral No Information Plan Of Treatment No Information Insurance Providers Payer Name Payer Address Payer Phone Subscriber Number Group Number Insured Name Patient Relationship to Insured Coverage Start Date Coverage End Date [facility] [address] [place] [phone] [id number] PATRICK TOTH Self - patient is the insured
[2025-01-05 08:39] LABS: Prostate Specific Antigen 3.20 ng/mL (<0.05-4.0)
== END 2025-01-05 07:20 | disposition home or self-care (01) ==
LOC: HO.LAB 07:19
PROVIDERS: PCP Physician Assistant; Visit Provider Urology
DX: C61 Malignant neoplasm of prostate (principal)
CPT/HCPCS: 36415; 84153; 84403

== ENCOUNTER 2025-02-18 15:47 | Outpatient (AMB) | payer OTHER, SELFPAY ==
--- NOTE | 2025-02-18 15:43 | MHC.OFFVIS ---
Intake Visit Reasons: 3m/Labs Intake Note: Patient is present for 3 mo follow up Urology Medication:NONE Antibiotic Allergy:NONE Blood Thinner:NONE Labs done : 01/05/25 PSA 3.20, Total Testosterone 13 Board Catcher Required: No Accompanied by: Self / Same As Patient Allergies No Known Allergies (No Known Allergies*) Allergy (Verified 02/18/25 15:44) HPI Comments Details: Toney is a pleasant male. He is a patient of Dr. Weeks. He seen for the following urologic conditions - prostate cancer Plan for [facility] in March Referral radiation oncology [facility] for definitive radiation therapy Prostate MRI had shown organ confined disease and staging PET-CT was negative 01/05 PSA 3.2 T 13 10/05 PSA 3.1 T 17 - GnRH given 07/08., T 20 [facility] - 04/06 Eligurinderd six-month Prostate cancer low-grade, low volume, high-risk PSA 12/04 Past medical history complicated by colonic resection with chemotherapy and immunotherapy. Included FOLFOX and Keytruda High-risk PSA 11/04 58 Biopsy 12/04 Histologic type: Adenocarcinoma, acinar type Histologic grade: [place] score: 4+3=7 (left base medial 20%), 3+4=7 (left base lateral 60%, left mid lateral 20% and mid medial 20%, right base medial 15%), 3+3=6 (right apex medial 15%) % of tissue involved: 12% of all tissue examined Periprostatic fat inv.: Not identified Seminal vesicle inv.: Not identified Perineural inv.: Not identified LVI: Not identified Staging PET-CT negative, uptake only in prostate. Prostate MRI 01/04 - 30 g prostate, chronic prostatitis, PI-RADS 4 anterior tumor. 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 Pulmonary emboli Hypertension Surgical History History of colonoscopy (~06/14/18) S/P right hemicolectomy Family History Father Throat cancer Mother Breast cancer Social History Household Members: None Housing: House Are you a primary healthcare economics consultant to a significant other at home: No Do you presently have visiting nurse or other home services: No Patient Tobacco Use Status: Never used Tobacco e-Cigarette/Vaping Use: Never Used service: No Current occupational status: employed Current occupation: teacher Cognitive needs: No Hearing needs: No Vision needs: No Review of Systems Const Denies chills and Denies fever(s) Card Reports no additional complaints and Denies syncope Resp Denies cough GI Denies abdominal pain and Denies heartburn Reports as per HPI and Denies change in libido Neuro Denies syncope Psych Denies change in libido Endo Denies change in libido Physical Exam Const General: cooperative, healthy appearing, comfortable and no acute distress Orientation/consciousness: patient oriented x3 HEENT Face and sinus: Yes normal facial exam Mouth: moist mucous membranes Neck Neck: Yes normal visual inspection, Yes full ROM and Yes trachea midline Chest Chest palpation & inspection: normal inspection of the chest Resp Effort & Inspection: normal respiratory effort, able to speak in complete sentences and no respiratory distress GI Inspection: Yes normal to inspection Back/Spine/Pelvis Cervical Spine: normal cervical lordosis Thoracic/Lumbar Spine: thoracic and lumbar spine normal to inspection Skin General skin exam: no rashes or lesions noted Neuro General: patient oriented x3, gait normal, tone normal and moves all extremities Extrem General: Yes normal to inspection and Yes capillary refill normal Assessment & Plan Assessment & Plan (1) Adenocarcinoma of prostate: Code(s): C61 - Malignant neoplasm of prostate Category: Medical Plan Refer radiation oncology assessment for definitive prostate cancer therapy Orders: Referrals Radiation Oncology Referral C61 - Malignant neoplasm of prostate Patient Instructions: This note is constructed using voice recognition software. While every effort has been made to ensure accuracy mill hand plate mill errors may have been included. Imaging studies, laboratory and physical exam results were discussed and reviewed in detail. No major barriers to patient understanding were identified. An opportunity to ask questions regarding the treatment plan was provided. All questions were answered. The patient expressed understanding and agreement with the above treatment plan. The patient is aware they should contact our office by phone for worsening of their current condition or the appearance of new urologic symptoms. Compliance is encouraged with any medications and followup testing that is ordered. It is a privilege to participate in the urologic care of your patient. If you have any questions or concerns regarding treatment for the above conditions, or other urologic issues, please do not hesitate to contact me. The office telephone contact is [phone]. Sincerely, Dr Navid Howell MD, MARCELO [facility] - Urology Compassionate Specialist Care for the Genitourinary System Coding Level of Care Code Est Pt Level 3 (86961) Complex EM visit Add On G2211 Diagnoses Adenocarcinoma of prostate C61
== END 2025-02-18 16:34 | disposition home or self-care (01) ==
LOC: HO.HUSH 15:47
PROVIDERS: PCP Physician Assistant; Visit Provider Urology
DX: C61 Malignant neoplasm of prostate (principal)
CPT/HCPCS: 99213

== ENCOUNTER → 2025-02-18 15:47 | Outpatient (BNVA) | payer OTHER, SELFPAY | PROVIDERS: PCP Physician Assistant; Visit Provider Urology | DX: C61 Malignant neoplasm of prostate (principal) | CPT/HCPCS: 99212 ==

== ENCOUNTER 2025-04-01 14:22 | Outpatient (AMB) | payer OTHER, SELFPAY ==
--- NOTE | 2025-04-01 14:33 | MHC.OFFVIS ---
Intake Visit Reasons: [facility] Intake Note: Patient Is Present for Eligard Injection Urology Med: None Antibiotic Allergy: None Blood Thinner: None 01/05/25- PSA- 3.20 TESTOSTERONE- 13 Topographical Engineer Required: No Accompanied by: Self / Same As Patient Allergies No Known Allergies (No Known Allergies*) Allergy (Verified 04/01/25 14:43) HPI Comments Details: Toney is a pleasant male. He is a patient of Dr. Weeks. He seen for the following urologic conditions - prostate cancer Here for GnRH injection Referral radiation oncology [facility] for definitive radiation therapy - seeing April 22 Discussed space oar and targeting seeds We will wait for radiation oncology input regarding gel barrier Prostate MRI had shown organ confined disease and staging PET-CT was negative 04/07 GnRH 01/05 PSA 3.2 T 13 10/05 PSA 3.1 T 17 - GnRH given 07/08 1.25, T 20 [facility] - 04/06 Eligard six-month Prostate cancer low-grade, low volume, high-risk PSA 12/04 Past medical history complicated by colonic resection with chemotherapy and immunotherapy. Included FOLFOX and Keytruda High-risk PSA 11/04 58 Biopsy 12/04 Histologic type: Adenocarcinoma, acinar type Histologic grade: [place] score: 4+3=7 (left base medial 20%), 3+4=7 (left base lateral 60%, left mid lateral 20% and mid medial 20%, right base medial 15%), 3+3=6 (right apex medial 15%) % of tissue involved: 12% of all tissue examined Periprostatic fat inv.: Not identified Seminal vesicle inv.: Not identified Perineural inv.: Not identified LVI: Not identified Staging PET-CT 03/06 - negative, uptake only in prostate. Prostate MRI 01/04 - 30 g prostate, chronic prostatitis, PI-RADS 4 anterior tumor. [facility] Medical History Iron deficiency anemia Colon cancer metastasized to intra-abdominal lymph node Pulmonary emboli Hypertension Surgical History History of colonoscopy (~06/14/18) S/P right hemicolectomy Family History Father Throat cancer Mother Breast cancer Social History Household Members: None Housing: House Are you a primary critical care physician assistant to a significant other at home: No Do you presently have visiting nurse or other home services: No Patient Tobacco Use Status: Never used Tobacco e-Cigarette/Vaping Use: Never Used Use of substances other than those prescribed or required for medical reasons: No Advance Directives: No Advance Directives Information Provided: No service: No Current occupational status: employed Current occupation: teacher Cognitive needs: No Hearing needs: No Vision needs: No Review of Systems Const Denies chills and Denies fever(s) Card Reports no additional complaints and Denies syncope Resp Denies cough GI Denies abdominal pain and Denies heartburn Reports as per HPI and Denies change in libido Neuro Denies syncope Psych Denies change in libido Endo Denies change in libido Physical Exam Const General: cooperative, healthy appearing, comfortable and no acute distress Orientation/consciousness: patient oriented x3 HEENT Face and sinus: Yes normal facial exam Mouth: moist mucous membranes Neck Neck: Yes normal visual inspection, Yes full ROM and Yes trachea midline Chest Chest palpation & inspection: normal inspection of the chest Resp Effort & Inspection: normal respiratory effort, able to speak in complete sentences and no respiratory distress GI Inspection: Yes normal to inspection Back/Spine/Pelvis Cervical Spine: normal cervical lordosis Thoracic/Lumbar Spine: thoracic and lumbar spine normal to inspection Skin General skin exam: no rashes or lesions noted Neuro General: patient oriented x3, gait normal, tone normal and moves all extremities Extrem General: Yes normal to inspection and Yes capillary refill normal Office Meds Eligard (6 month) 45 mg (6 month) subcutaneous syringe Performing Provider: Navid Howell MD [facility] Administered by: Ernie Avila LPN on 04/01/25 14:47 Dose Route Admin Location Dispensed Lot Number Expiration Date [facility] Mounted Police Officer 45 mg subcut right arm 45 mg [id number] 04/13/26 71185-263-84 [employer]. Total Dispensed Waste 45 mg 0 % Assessment & Plan Assessment & Plan (1) Adenocarcinoma of prostate: Code(s): C61 - Malignant neoplasm of prostate Category: Medical Plan Discussion after radiation oncology evaluation Orders: Orders AMB Leuprolide Injection - Practice Supplied Today C61 - Malignant neoplasm of prostate Patient Instructions: This note is constructed using voice recognition software. While every effort has been made to ensure accuracy laminating machine operator helper errors may have been included. Imaging studies, laboratory and physical exam results were discussed and reviewed in detail. No major barriers to patient understanding were identified. An opportunity to ask questions regarding the treatment plan was provided. All questions were answered. The patient expressed understanding and agreement with the above treatment plan. The patient is aware they should contact our office by phone for worsening of their current condition or the appearance of new urologic symptoms. Compliance is encouraged with any medications and followup testing that is ordered. It is a privilege to participate in the urologic care of your patient. If you have any questions or concerns regarding treatment for the above conditions, or other urologic issues, please do not hesitate to contact me. The office telephone contact is [phone]. Sincerely, Dr Navid Howell MD, [facility] - Urology Compassionate Specialist Care for the Genitourinary System Coding Level of Care Code Est Pt Level 3 (73421) Complex EM visit Add On G2211 Diagnoses Adenocarcinoma of prostate C61
--- OUTSIDE RECORDS SUMMARY | 2025-04-02 02:53 | XMS_ITS | Encounter Summary ---
Author Organization [facility] Address [address] [facility] [address] [place] [address] Phone Care Team Providers Care Legal Referee Name Role Phone Micky Weeks MD Unavailable [phone] Micky Weeks MD Primary Care Provider Kailey Zaragoza MD Unavailable [phone] Cristo Santiago MD Unavailable [phone] Self-Referred, Patient Unavailable Unavailab le Encounter Details Date Type Department Care Team (Late st Contact Info) Description 12/05/2019 Orders Only Laboratory Services, [facility] [address] [facility], 2nd [place] [address] Cristo Santiago MD [address] [facility] [address] [place] [address] [email or web address] Social History Tobacco Use Types Packs/Day Years [...] I NTERPRETATION Final Result Performing Organization Address [facility] Co de Phone Number PERCEDWIN_PAMELA * CT Chest Outside (No Interpretation) (10/28/2019 12:00 AM EDT) Other Narrative PERCIPIO_BWH - 12/05/2019 2:02 PM EDT This study is for PACS storage only and not for interpretation. us Cristo Santiago MD IMG OUTSIDE IMAGING W/OUT I NTERPRETATION Final Result Performing Organization Address [facility] de Phone Number ROSINA_ANDREWH * CT Abdomen/Pelvis Outside (No Interpretation) (04/11/2019 12:00 AM EST) Other Narrative PERCIPIO_DFCI - 12/05/2019 2:02 PM EDT This study is for PACS storage only and not for interpretation. us Cristo Santiago MD IMG OUTSIDE IMAGING W/OUT I NTERPRETATION Final Result Performing Organization Address [facility] de Phone Number PERCEDWIN_RICARDOCI * CT Chest Outside (No Interpretation) (08/27/2018 12:00 AM EDT) Other Narrative PERCIPCHAPO_BW - 12/05/2019 2:02 PM EDT This study is for PACS storage only and not for interpretation. us Cristo Santiago MD IMG OUTSIDE IMAGING W/OUT I NTERPRETATION Final Result Performing Organization Address City/[facility] Co de Phone Number ROSINA_MARIO documented in this encounter Visit Diagnoses Not on filedocumented in this encounter Care Teams Legal Referee Relationship Specialty Start Date End Date Micky Weeks MD [address] [place] [address] Dr Woods, REGGIE [address] PCP - General Internal Medicine 11/04/19 Micky Weeks MD [address] [place] [address] [facility] [place] [address] Internal Medicine 11/04/19 Kailey Zaragoza MD [address] [place] [address] [email or web address] Referring Physician Hematology and Oncology 11/25/19 Cristo Santiago MD [address] [place] [address] [address] [place] [address] [email or web address] Primary Oncologist Medical Oncology 11/27/19 Self-Referred, Patient 12/02/19 documented as of this encounter Additional Source Comments The information contained in this document represents components of the legal health record. It is not the complete legal health record.[facility]
--- OUTSIDE RECORDS SUMMARY | 2025-04-02 02:53 | XMS_ITS | Clinical Summary ---
Author Organization [facility] Address [address] [place] [address] Care Team Providers Care Watchstander Name Role Phone Micky Weeks Primary Care [...] of 3 - 19+ 3-dose series) 1985 DTaP,Tdap,and Td Vaccines (1 - Tdap) 02/19/1988 Zoster Vaccines (1 of 2) 02/19/2016 Pneumococcal Vaccine: 50+ Ye ars (2 of 2 - PCV) 06/13/2019 06/13/2018 Alcohol/Substance Use Screening 05/14/2024 Depression Screening and Follow-Up 05/14/2024 Social Drivers of Health Majo ual Screening 05/14/2024 Influenza Vaccine (#1) 2024 02/19/2021, 2018 COVID-19 Vaccine ( season) 2025 04/06/2021, 09/04/2020, 08/07/2020 Insurance [id number] REGG[place] Chavez [id number] [facility] MEDICAID Care Teams Watchstander Relationship Specialty Start Date End Date Micky Weeks [address] [place] [address] [place] [address] PCP - General Internal Medicine 12/25/23
--- OUTSIDE RECORDS SUMMARY | 2025-04-02 02:53 | XMS_ITS | Patient Health Record ---
Author Organization [facility] Address [address] [place] [address] Care Team Providers Care Recreation Teacher Name Role Phone Micky (RETIRED) Micky CARDOZO Primary Care Provide r Unavailable Derrick Pandey Jr Unavailable [phone] NIMO STEINER Unavailable Unavailable Reason For Referral No Information Plan Of Treatment No Information Insurance Providers Payer Name Payer Address Payer Phone Subscriber Number Group Number Insured Name Patient Relationship to Insured Coverage Start Date Coverage End Date [facility] [address] [place] [phone] [id number] PATRICK TOTH Self - patient is the insured
--- OUTSIDE RECORDS SUMMARY | 2025-04-02 02:53 | XMS_ITS | Clinical Summary ---
Author Organization [facility] Address [address] [place] [address] Phone Care Team Providers Care Spinner Cap Frame Name Role Phone Micky Weeks MD Unavailable [phone] Micky Weeks MD Primary Care Provider Kailey Zaragoza MD Unavailable [phone] Cristo Santiago MD Unavailable [phone] Self-Referred, Patient Unavailable Unavailab le Allergies No known active allergies Medications amLODIPine (NORVASC) 5 MG tablet Take 5 mg by mouth daily. 10/21/2019 Active lisinopril (PRINIVIL,ZESTRI L) 20 MG tablet Take 20 mg by mouth daily. 10/21/2019 Active Active Problems Problem Noted Date Diagnosed Date Malignant neoplasm of ascending colon 12/19/2019 Family History Medical History Relation Comments Throat cancer Father Breast cancer Mother Colon cancer Mother Relation Status Comments Father Mother Social History Tobacco Use Types Packs/Day Years Used Date Smoking Tobacco: Never Smokeless Tobacco: Never Education Answer Date Recorded Are you interested in more education? Not on bren e 09/08/2022 Are you concerned about learning? Not on file 09/08/2022 No 09/08/2022 No 09/08/2022 Digital Access Answer Date Recorded No 10/07/2022 No 10/07/2022 No 10/07/2022 Reliable internet access at home? Not on file 10/07/2022 Device with a working camera? Not on file Sex and Gender Information Value Date Recorded Sex Assigned at Not on file Legal Sex Male 9:10 AM EDT Gender Identity Not on file Sexual Orientation Not on file Last Filed Vital Signs Vital Sign Reading Time Taken Comments Blood Pressure 148/84 12/05/2019 2:12 PM EDT Pulse 99 12/05/2019 2:12 PM EDT Temperature 37.2 C (98.9 F) 12/05/2019 2:12 PM EDT Respiratory Rate 16 12/05/2019 2:12 PM EDT Oxygen Saturation 98% 12/05/2019 2:12 PM EDT Inhaled Oxygen Concentration - - Weight 94 kg (207 lb 3.7 oz) 12/05/2019 2:12 PM EDT dfci Height - - Body Mass Index - - Plan of Treatment Health Maintenance Due Date Last Done Comments Adult Td,Tdap Booster 1966 CREATININE LEVEL 1966 LIPID PANEL 1966 POTASSIUM LEVEL 1966 DEPRESSION SCREENING 1978 HEPATITIS C SCREENING 02/19/1984 HIV ONE-TIME SCREENING (18-6 5 YEARS) 02/19/1984 ZOSTER VACCINES (1 of 2) 1985 COLOGUARD 2011 COLONOSCOPY 2011 COLORECTAL CANCER SCREENING 2011 FIT TEST 2011 FOBT 2011 SIGMOIDOSCOPY 2011 VIRTUAL COLONOSCOPY 2011 PNEUMOCOCCAL VACCINES (50+ y ears) (2 of 2 - PCV) 06/13/2019 06/13/2018 INFLUENZA VACCINE (#1) 2024 06/13/2018 COVID-19 VACCINE (2 - 2024-2 6 season) 2025 08/07/2020 RSV VACCINE (1 - 1-dose 75+ series) 2041 SMOKING STATUS SCREENING (On ce After 26 Yrs) Completed 12/05/2019 HEPATITIS A VACCINES Aged Out No long er eligible based on patient's age to complete this topic HIB VACCINES Aged Out No longer eligi ble based on patient's age to complete this topic MENINGOCOCCAL VACCINES (ACWY) Aged Out No longer eligible based on patient's age to complete this topic MENINGOCOCCAL VACCINES (B) Aged Out N o longer eligible based on patient's age to complete this topic Medical Devices Not on file Insurance # [address] [place] [id number] [facility] NON NSPG PCP [employer] [facility] NON NSPG PCP S[employer] [facility] NON NSPG PCP S[employer] NON NSPG PCP [employer] # [address] [place] [id number] [employer] NON NSPG PCP S[employer] NON NSPG PCP [employer] # [address] [place] [phone] [employer] NON NSPG PCP [facility] # [address] [place] [id number] [employer] NON NSPG PCP [employer] # [address] [place] [address] [employer] NON NSPG PCP [employer] Care Teams Spinner Cap Frame Relationship Specialty Start Date End Date Micky Weeks MD [address] [place] [address] [place] [address] PCP - General Internal Medicine 6/23/20 Micky Weeks MD [address] [place] [address] Internal Medicine 11/04/19 Kailey Zaragoza MD [address] [place] [address] [email or web address] Referring Physician Hematology and Oncology 11/25/19 Cristo Santiago MD [address] [place], [place] [address]robinson Dolly [address] [place] [address] [email or web address] Primary Oncologist Medical Oncology 11/27/19 Self-Referred, Patient 12/02/19 Additional Source Comments The information contained in this document represents components of the legal health record. It is not the complete legal health record.[facility]
== END 2025-04-01 15:03 | disposition home or self-care (01) ==
LOC: HO.HUSH 14:22
PROVIDERS: PCP Physician Assistant; Visit Provider Urology
DX: C61 Malignant neoplasm of prostate (principal)
CPT/HCPCS: 99213

== ENCOUNTER → 2025-04-01 14:22 | Outpatient (BNVA) | payer OTHER, SELFPAY | PROVIDERS: PCP Physician Assistant; Visit Provider Urology | DX: C61 Malignant neoplasm of prostate (principal) | CPT/HCPCS: 96402; 99212; J9217 ==

== ENCOUNTER 2025-04-08 07:55 | Outpatient (REF) | payer OTHER, SELFPAY ==
--- NOTE | ~2025-04-08 | CT_ITS ---
EXAMINATION: CT ABDOMEN PELVIS WITH IV CONTRAST, CT CHEST WITHOUT IV CONTRAST INDICATION: Surveillance for recurrence COMPARISON: Comparison is made with the prior examination 07/28/2024.. TECHNIQUE: CT scan of the chest was performed without intravenous contrast. Subsequently, CT of the abdomen and pelvis was performed following administration of 85 mL Omnipaque 350 using standard departmental protocol. Coronal and sagittal reformatted images were generated and reviewed. Oral contrast material was not administered at the request of the referring physician. This CT exam was performed with one or more of the following dose reduction techniques: automated exposure control, adjustment of the mA and/or kV according to patient size, use of iterative reconstruction technique. DLP: 793 mGy-cm CHEST: THYROID: There is a probable nodule of the right thyroid lobe. LUNGS: Again seen is a 2 mm nodule at the right lung apex (series 5, image 24). The lungs are otherwise clear. MEDIASTINUM: There is no mediastinal lymphadenopathy. LENORE: There is no hilar lymphadenopathy. CARDIOVASCULATURE: The heart is normal in size. There is no pericardial effusion. The thoracic aorta is normal in caliber. DEGREE OF CORONARY CALCIFICATION: mild PLEURA: There is no pleural effusion. No pneumothorax. MAIN AIRWAYS: The mainstem bronchi and proximal branches are patent. AXILLA: There is no axillary lymphadenopathy. SOFT TISSUES: Unremarkable. BONES: The bones are intact. ABDOMEN: LIVER: The liver is normal in size and contour. No liver mass is identified. The hepatic and portal veins are patent. GALLBLADDER / BILE DUCTS: The gallbladder is unremarkable. There is no intra or extrahepatic biliary ductal dilatation. SPLEEN: The spleen is normal in size. No focal splenic lesion is identified. PANCREAS: The pancreas is unremarkable in appearance. ADRENAL GLANDS: Within normal limits. KIDNEYS/RETROPERITONEUM: No renal calculi are identified. There is no hydronephrosis. Again seen is a 2.0 cm cyst at the upper pole of the left kidney. LYMPH NODES: No abdominal or pelvic lymphadenopathy. VASCULATURE: The abdominal aorta is normal in caliber. MESENTERY/PERITONEUM: No free fluid. Again seen is mild infiltration of the fat at the root of the mesentery which is a nonspecific finding. No masses. There is no free intraperitoneal gas. STOMACH: The stomach is collapsed, limiting evaluation. SMALL BOWEL: The small bowel is normal in caliber. COLON: The patient is status post ascending colectomy. APPENDIX: The appendix is surgically absent. URINARY BLADDER/PELVIC ORGANS: The urinary bladder is unremarkable. The prostate is normal in size. BONES / SOFT TISSUES: Again seen is mild anterior wedging of the L1 vertebral body. CT/CT abdomen pelvis w IV con IMPRESSION: 1. No evidence of recurrent or metastatic disease. 2. Probable right thyroid nodule. Correlation with thyroid ultrasound is recommended. Electronically signed by: Gabe Perez MD 04/08/2025 09:23 AM [facility] [place]
--- OUTSIDE RECORDS SUMMARY | 2025-04-08 08:04 | XMS_ITS | Clinical Summary ---
Author Organization [facility] Address [address] [place] [address] Phone Care Team Providers Care Visitor Services Technician Name Role Phone Micky Weeks MD Unavailable [phone] Micky Weeks MD Primary Care Provider Kailey Zaragoza MD Unavailable [phone] Cristo Santiago MD Unavailable [phone] Self-Referred, Patient Unavailable Unavailab le Allergies No [...] Medical Devices Not on file Insurance # [address] [place] [id number] [facility] NON NSPG PCP [employer] [facility] NON NSPG PCP S[employer] [facility] NON NSPG PCP S[employer] NON NSPG PCP [employer] # [address] [place] [phone] [employer] NON NSPG PCP S[employer] NON NSPG PCP [employer] # [address] [place] [address] [employer] NON NSPG PCP [employer] # [address] [place] [phone] [employer] NON NSPG PCP [employer] # [address] [place] [address] [employer] NON NSPG PCP [employer] Care Teams Visitor Services Technician Relationship Specialty Start Date End Date Micky Weeks MD [address] [place] [address] [place] [address] PCP - General Internal Medicine 6/23/20 Micky Weeks MD [address] [place] [address] Internal Medicine 11/04/19 Kailey Zaragoza MD [address] [place] [address] [email or web address] Referring Physician Hematology and Oncology 11/25/19 Cristo Santiago MD [address] [place], [place] [address]robinson Dolly [address] [place] [address] [email or web address] Primary Oncologist Medical Oncology 11/27/19 Self-Referred, Patient 12/02/19 Additional Source Comments The information contained in this document represents components of the legal health record. It is not the complete legal health record.[facility]
--- OUTSIDE RECORDS SUMMARY | 2025-04-08 08:04 | XMS_ITS | Encounter Summary ---
Author Organization [facility] Address [address] [place] [address] Phone Care Team Providers Care Electronic Design Engineer Name Role Phone Micky Weeks MD Unavailable [phone] Micky Weeks MD Primary Care Provider Kailey Zaragoza MD Unavailable [phone] Cristo Santiago MD Unavailable [phone] Self-Referred, Patient Unavailable Unavailab le Encounter Details Date Type Department Care Team (Late st Contact Info) Description 12/05/2019 Orders Only Laboratory Services, [facility] [place] [address] [place] [address] Cristo Santiago MD [address] [facility] [address] [place] [address] [email or web address] Social History Tobacco Use Types Packs/Day [...] I NTERPRETATION Final Result Performing Organization Address [facility] Co de Phone Number [email or web address] * CT Chest Outside (No Interpretation) (10/28/2019 12:00 AM EDT) Other Narrative PERCIPIO_BWH - 12/05/2019 2:02 PM EDT This study is for PACS storage only and not for interpretation. us Cristo Santiago MD IMG OUTSIDE IMAGING W/OUT I NTERPRETATION Final Result Performing Organization Address [facility] de Phone Number ROSINA_ANDREWH * CT Abdomen/Pelvis Outside (No Interpretation) (04/11/2019 12:00 AM EST) Other Narrative PERCIPIO_DFCI - 12/05/2019 2:02 PM EDT This study is for PACS storage only and not for interpretation. us Cristo Santiago MD IMG OUTSIDE IMAGING W/OUT I NTERPRETATION Final Result Performing Organization Address [facility] de Phone Number [email or web address]_[email or web address] * CT Chest Outside (No Interpretation) (08/27/2018 12:00 AM EDT) Other Narrative PERCIPCHAPO_BW - 12/05/2019 2:02 PM EDT This study is for PACS storage only and not for interpretation. us Cristo Santiago MD IMG OUTSIDE IMAGING W/OUT I NTERPRETATION Final Result Performing Organization Address [facility] Co de Phone Number ROSINA_MARIO documented in this encounter Visit Diagnoses Not on filedocumented in this encounter Care Teams Electronic Design Engineer Relationship Specialty Start Date End Date Micky Weeks MD [address] [place] [address] Dr [place], [place] [address] PCP - General Internal Medicine 11/04/19 Micky Weeks MD [address] [place] [address] [facility] [place] [address] Internal Medicine 11/04/19 Kailey Zaragoza MD [address] [place] [address] [email or web address] Referring Physician Hematology and Oncology 11/25/19 Cristo Santiago MD [address] [place] [address] [address] [place] [address] [email or web address] Primary Oncologist Medical Oncology 11/27/19 Self-Referred, Patient 12/02/19 documented as of this encounter Additional Source Comments The information contained in this document represents components of the legal health record. It is not the complete legal health record.[facility]
--- OUTSIDE RECORDS SUMMARY | 2025-04-08 08:04 | XMS_ITS | Clinical Summary ---
Author Organization [facility] Address [address] [place] [address] Care Team Providers Care Beeswax Bleacher Name Role Phone Micky Weeks Primary Care Provider [phone] Social History Tobacco Use Types Packs/Day Years [...] 04/06/2021, 09/04/2020, 08/07/2020 Insurance [id number] [id number] [facility] MEDICA[facility] Care Teams Beeswax Bleacher Relationship Specialty Start Date End Date Micky Weeks [address] [place] [address] [place] [address] PCP - General Internal Medicine 12/25/23
--- OUTSIDE RECORDS SUMMARY | 2025-04-08 08:04 | XMS_ITS | Patient Health Record ---
Author Organization [facility] Address [address] [place] [address] Care Team Providers Care Facilities Planner Name Role Phone Micky (RETIRED) Micky CARDOZO Primary Care Provide r Unavailable Derrick Pandey Jr Unavailable NIMO STEINER Unavailable Unavailable Reason For Referral No Information Plan Of Treatment No Information Insurance Providers Payer Name Payer Address Payer Phone Subscriber Number Group Number Insured Name Patient Relationship to Insured Coverage Start Date Coverage End Date [facility] [address] [place] [phone] [id number] PATRICK TOTH Self - patient is the insured
[2025-04-08 10:06] LABS: Creatinine POC 0.9 mg/dL (0.5-1.4); GFR POC > 60
== END 2025-04-08 07:56 | disposition home or self-care (01) ==
LOC: HO.CT 07:55
PROVIDERS: PCP Student in an Organized Health Care Education/Training Program; Visit Provider Internal Medicine
DX: C18.2 Malignant neoplasm of ascending colon (principal); C77.2 Secondary and unspecified malignant neoplasm of intra-abdominal lymph nodes
CPT/HCPCS: 71250; 74177; 82565

== ENCOUNTER → 2025-04-08 07:58 | Outpatient (BNV) | payer OTHER, SELFPAY | PROVIDERS: PCP Student in an Organized Health Care Education/Training Program; Visit Provider Radiology Diagnostic Radiology | DX: Z08 Encounter for follow-up examination after completed treatment for malignant neoplasm (principal) | CPT/HCPCS: 71250; 74177 ==

== ENCOUNTER 2025-04-15 15:03 | Outpatient (AMB) | payer OTHER, SELFPAY ==
--- NOTE | 2025-04-15 15:03 | A.OFFPC_ITS ---
Vital Signs 04/15/25 15:11 Height 5 ft 5.91 in Weight 228 lb BMI 36.9 BP 132/86 Blood Pressure Location Lt brachial Position Sitting Respiration 18 Pulse 97 Pulse Source Pulse Oximeter Temp 97.1 F Temp Source Temporal Artery Scan Pulse Oximetry (%) 99 Oxygen Delivery Method Room Air Intake Visit Reasons: SAM/ NEW PATIENT Manpower Development Manager Required: No Accompanied by: Self / Same As Patient Allergies No Known Allergies (No Known Allergies*) Allergy (Verified 04/15/25 15:04) Medication List - Last Reconciled 04/15/25 by Jose Carlos De La Torre MD hydrochlorothiazide 12.5 mg PO DAILY lisinopril 20 mg PO DAILY Tobacco use date assessed: 03/16/25 Dental Screening Dental Screen Date: 03/16/25 HPI HPI Comments History of Present Illness Details History of Present Illness The patient is a 60 year old individual presenting for a new patient visit for management of chronic conditions and health maintenance. The patient has a history of hypertension, which is managed with hydrochlorothiazide 12.5 mg and lisinopril 20 mg. The patient's blood pressure readings have improved and were 132/86 mmHg at the visit. The patient has a history of colon cancer, for which the patient completed chemotherapy. A PET scan last year confirmed the patient was cancer-free, and a recent follow-up CAT scan was also clear. A follow-up colonoscopy is not due until 2028. There is also a history of prostate cancer, which is currently being managed with leuprolide hormonal therapy by Dr. Howell. The last injection was administered about two weeks ago, and the patient reports normal urinary and bowel function. Past medical history is notable for pulmonary embolisms, which were suspected to be related to the malignancy. The condition resolved on a repeat scan, and the p atient is no longer on anticoagulation therapy. The patient's personal health goals include weight reduction and maintaining blood pressure control. The patient has never smoked, has received a flu shot this year, and reports good mood, sleep, and appetite. Medical History: - Essential Hypertension - History of Colon Cancer, status post c hemotherapy - Prostate Cancer, on hormonal therapy - History of Pulmonary Embolism, resolve d Medications: - Hydrochlorothiazide 12.5 mg for hypert ension - Lisinopril 20 mg for hypertension - Leuprolide for prostate cancer Diagnostic Results: - PET scan (last year): Negative for can cer. - CAT scan (recent): Clear. 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 - Substance Use: Denies ever smoking. - Functional Status: Reports being very active. - Nutrition: Reports eating well. - Sleep: Reports sleeping well. Health Maintenance - Vaccinations: Patient has received the flu shot. Recommended updated COVID-19 vaccine. - Screening Tests: Will order a stool-ba sed test for colon cancer screening. Will also order bloodwork including A1c, TSH, vitamin D, and screening for syphilis, hepatitis, and HIV. - Lifestyle: Patient has goals to lose w eight. - Follow-up: Schedule for a physical exa m in 3 months with labs to be completed prior. Patient was informed and verbally consented to the use of an ambient scribe for clinic note documentation during this visit. Vital signs reviewed. Comprehensive history, review of systems, and physical exam completed. Medications, allergies, and problem list reviewed and updated. Counseling provided on nutrition, regular exercise, sleep hygiene, and moderation of alcohol use. Discussed age-appropriate screenings (mammogram, colonoscopy, Pap, bone density) and immunizations (flu, COVID, shingles, Tdap). Screened for depression, fall risk, and home safety; no current concerns. Discussed stress management, dental and vision care, and importance of ongoing preventive follow-up. Routine labs ordered for metabolic and lipid screening. Patient educated on healthy lifestyle and agrees with the plan. [facility] Medical History (Updated 04/15/25 @ 15:32 by Jose Carlos De La Torre MD) Iron deficiency anemia Colon cancer metastasized to intra-abdominal lymph node Pulmonary emboli Hypertension Surgical History History of colonoscopy (~06/14/18) S/P right hemicolectomy Family History Father Throat cancer Mother Breast cancer Social History Household Members: None Housing: House Are you a primary memory care program director to a significant other at home: No Do you presently have visiting nurse or other home services: No Patient Tobacco Use Status: Never used Tobacco e-Cigarette/Vaping Use: Never Used service: No Current occupational status: employed Current occupation: teacher Cognitive needs: No Hearing needs: No Vision needs: No Questionnaire PHQ-9 Over the last 2 weeks, how often have you been bothered by any of the following problems? 1. Little interest or pleasure in doing things: not at all 2. Feeling down, depressed, or hopeless: not at all 3. Trouble falling or staying asleep, or sleeping too much: not at all 4. Feeling tired or having little energy: not at all 5. Poor appetite or overeating: not at all 6. Feeling bad about yourself - or that you are a failure or have let yourself or your family down: not at all 7. Trouble concentrating on things, such as reading the newspaper or watching television: not at all 8. Moving or speaking so slowly that other people could have noticed. Or the opposite - being so fidgety or restless that you have been moving around a lot more than usual: not at all 9. Thoughts that you would be better off or of hurting yourself in some way: not at all Total score: 0 Depression Screening Interpretation: Negative Depression Screening Done: Yes Source: Developed by Drs. Gabe Aguilar, Katharine Lake, Russell Olivo and colleagues, with an educational catie from [employer]. Thrive Questionnaire Date Thrive assessed: 03/16/25 GÓMEZ-7 AMB Questionnaire GÓMEZ-7 Date GÓMEZ - 7 assessed: 04/15/25 Feeling nervous, anxious, or on edge: 0 = Not at all Not being able to stop or control worryin = Not at all Worrying too much about different things: 0 = Not at all Trouble relaxin = Not at all Being so restless that it is hard to sit still: 0 = Not at all Becoming easily annoyed or irritable: 0 = Not at all Feeling afraid as if something awful might happen: 0 = Not at all Total GÓMEZ-7 score (0-4 normal; 5-9 mild; 10-14 moderate; 15-21 severe): 0 Source: Developed by Drs. Gabe Aguilar, Katharine Lake, Russell Olivo and colleagues, with an educational catie from [employer]. Review of Systems Narrative Review of Systems - Constitutional: Reports eating well and sleeping well. Denies feeling down. - Genitourinary: Reports urinating okay. - Gastrointestinal: Reports pooping okay. All systems reviewed & are unremarkable except as reviewed in HPI and above Physical exam (Primary Care) Vital Signs: Last Vital Signs Temp 97.1 F 04/15/25 15:11 Pulse 97 04/15/25 15:11 Resp 18 04/15/25 15:11 BP 132/86 04/15/25 15:11 Pulse Ox 99 04/15/25 15:11 Oxygen Delivery Method Room Air 04/15/25 15:11 BMI result Body Mass Index 36.9 Tobacco/Smoking Status: Tobacco use Status Tobacco use date assessed 03/16/25 04/15/25 15:08 Patient Tobacco Use Status Never used Tobacco 04/15/25 15:08 e-Cigarette/Vaping Use Never Used 04/15/25 15:08 PHQ-9: PHQ-9 Score PHQ-9: Total score 0 04/15/25 15:26 Depression Screening Interpretation: Negative Thrive Assessment: Date of Thrive Assessment Date Thrive assessed 03/16/25 04/15/25 15:08 Narrative Physical Exam General: +Alert and oriented, Well nourished, No acute distress. Eye: Pupils are equal, round and reactive to light, Intact accommodation, Extraocular movements are intact, Normal conjunctiva, Vision unchanged. HENT: Normocephalic, Atraumatic, Tympanic membranes are clear, Normal hearing, Oral mucosa is moist, No pharyngeal erythema, Ear canals patent. Respiratory: Lungs CTA bilaterally, No wheeze, Respirations are non-labored. Cardiovascular: Regular rate, Regular rhythm, S1 auscultated, S2 auscultated, No murmur, Good pulses equal in all extremities, Normal peripheral perfusion, No edema. Gastrointestinal: Soft, Non-tender, Non-distended, Normal bowel sounds, No organomegaly. Musculoskeletal: Normal range of motion, Normal strength, No tenderness, No swelling, No deformity, Normal gait. Integumentary: Warm, Dry, [place], Intact. Neurologic: Alert, Oriented, Normal sensory, Normal motor function, No focal defects, Cranial Nerves II-XII are grossly intact, Normal deep tendon reflexes. Psychiatric: Cooperative, Appropriate mood & affect, Normal judgment. Coding Level of Care Code Est Pt Level 4 (92618) Complex visit Add On G2211 Diagnoses Hypertension, unspecified type I10 Hypertension type: unspecified Adenocarcinoma of prostate C61 Cancer of ascending colon metastatic to intra-abdominal lymph node C18.2; C77.2 Other chronic pulmonary embolism without acute cor pulmonale I27.82 Acute cor pulmonale presence: without acute cor pulmonale Chronicity: chronic Pulmonary embolism type: other Assessment & Plan Assessment & Plan (1) Hypertension: Comment: - The condition is currently well-controlled on lisinopril 20 mg and hydrochlorothiazide 12.5 mg. Will continue current medications. - The patient's goal for weight loss is encouraged to further aid in blood pressure management. Code(s): I10 - Essential (primary) hypertension Category: Medical Qualifiers: Hypertension type: unspecified Qualified Code(s): I10 - Essential (primary) hypertension (2) Adenocarcinoma of prostate: Comment: - The patient is stable on leuprolide hormonal therapy, which is managed by urology (Dr. Howell). - Will continue to follow specialist recommendations. Code(s): C61 - Malignant neoplasm of prostate Category: Medical (3) Cancer of ascending colon metastatic to intra-abdominal lymph node: Comment: - The patient is in remission following chemotherapy, with a negative PET scan last year and a recent clear CAT scan. - A stool-based screening test will be ordered for interval surveillance. - A colonoscopy is not due until 2028. Code(s): C18.2 - Malignant neoplasm of ascending colon; C77.2 - Secondary and unspecified malignant neoplasm of intra-abdominal lymph nodes Category: Medical Plan: Health Maintenance: - Vaccinations: Patient has received the flu shot. Recommended updated COVID-19 vaccine. - Screening Tests: Will order a stool-based test for colon cancer screening. Will also order bloodwork including A1c, TSH, vitamin D, and screening for syphilis, hepatitis, and HIV. - Lifestyle: Patient has goals to lose weight. - Follow-up: Schedule for a physical exam in 3 months with labs to be completed prior. Patient was informed and verbally consented to the use of an ambient scribe for clinic note documentation during this visit. (4) Pulmonary emboli: Comment: - Resolved and no longer requires anticoagulation. - No acute concerns at this time. Code(s): I26.99 - Other pulmonary embolism without acute cor pulmonale Category: Medical Qualifiers: Acute cor pulmonale presence: without acute cor pulmonale Chronicity: chronic Pulmonary embolism type: other Qualified Code(s): I27.82 - Chronic pulmonary embolism Plan I reviewed the patient's medical history, which includes hypertension, colon cancer, prostate cancer, and resolved pulmonary embolism. I commended the marco mark's positive outlook and proactive engagement in their healthcare. We discussed the health maintenance plan moving forward. I advised the patient to get the updated COVID-19 vaccine due to an increased risk profile from past chemotherapy. I explained the plan to order a stool-based test for additional colon cancer screening, and the patient was agreeable. We agreed to schedule a physical exam in three months, with comprehensive lab work (including A1c, TSH, vitamin D, and STI screening) to be completed beforehand. Orders: Orders TSH reflex Free T4 3 Months Z00.00 - Encounter for general adult medical examination without abnormal findings Lipid Panel 3 Months Z00.00 - Encounter for general adult medical examination without abnormal findings Microalbumin, Random (w Creat) 3 Months Z00.00 - Encounter for general adult medical examination without abnormal findings Comprehensive Met. Panel 3 Months Z00.00 - Encounter for general adult medical examination without abnormal findings Complete Blood Count Auto Diff 3 Months Z00.00 - Encounter for general adult medical examination without abnormal findings Vitamin D 25-OH Total 3 Months Z00.00 - Encounter for general adult medical examination without abnormal findings Syphilis Screen 3 Months Z00.00 - Encounter for general adult medical examination without abnormal findings HIV Ab/Ag 3 Months Z00.00 - Encounter for general adult medical examination without abnormal findings Hepatitis A,B,C Profile 3 Months Z00.00 - Encounter for general adult medical examination without abnormal findings Hemoglobin A1c 3 Months Z00.00 - Encounter for general adult medical examination without abnormal findings Referrals Cologuard Test Z12.11 - Encounter for screening for malignant neoplasm of colon Patient Instructions: - Continue to take your hydrochlorothiazide 12.5 mg and lisinopril 20 mg as prescribed for your blood pressure. - Please get the updated COVID-19 vaccine, which you can receive at a local pharmacy. - A test kit to check your stool for colon cancer screening will be ordered for you. - We will have you come back for a physical exam in three months. - Please get your blood work done one to two weeks before your next appointment. - Continue your efforts to eat better and lose weight for your overall health.
[2025-04-15 15:11] VITALS: BP 132/86; PULSE 97; RESP 18; TEMP 36.2; O2SAT 99; BMI 36.9
--- OUTSIDE RECORDS SUMMARY | 2025-04-15 18:04 | XMS_ITS | Patient Health Record ---
Author Organization [facility] Address [address] [place] [address] Care Team Providers Care Chemical Equipment Controller Name Role Phone Micky (RETIRED) Micky CARDOZO Primary Care Provide r Unavailable Derrick Pandey Jr Unavailable NIMO STEINER Unavailable Unavailable Reason For Referral No Information Plan Of Treatment No Information Insurance Providers Payer Name Payer Address Payer Phone Subscriber Number Group Number Insured Name Patient Relationship to Insured Coverage Start Date Coverage End Date [facility] [address] [place] [phone] [id number] PATRICK TOTH Self - patient is the insured
--- OUTSIDE RECORDS SUMMARY | 2025-04-15 18:04 | XMS_ITS | Clinical Summary ---
Author Organization [facility] Address [address] [place] [address] Care Team Providers Care Operator Receptionist Name Role Phone Micky Weeks Primary Care Provider [phone] Social History Tobacco Use Types Packs/Day Years [...] 04/06/2021, 09/04/2020, 08/07/2020 Insurance [id number] REGGIE Chavez [id number] [facility] MEDICAID Care Teams Operator Receptionist Relationship Specialty Start Date End Date Micky Weeks [address] [place] [address] [place] [address] PCP - General Internal Medicine 12/25/23
--- OUTSIDE RECORDS SUMMARY | 2025-04-15 18:04 | XMS_ITS | Encounter Summary ---
Author Organization [facility] Address [address] [facility] [address] [place] [address] Phone Care Team Providers Care Manager Parking Name Role Phone Micky Weeks MD Unavailable [phone] Micky Weeks MD Primary Care Provider Kailey Zaragoza MD Unavailable [phone] Cristo Santiago MD Unavailable [phone] Self-Referred, Patient Unavailable Unavailab le Encounter Details Date Type Department Care Team (Late st Contact Info) Description 12/05/2019 Orders Only Laboratory Services, [facility] [address] [facility] [place] [address] Cristo Santiago MD [address] [facility] [address] [place] [address] [email or web address] Social History Tobacco Use Types Packs/Day Years [...] I NTERPRETATION Final Result Performing Organization Address [facility] Co de Phone Number [email or web address] * CT Chest Outside (No Interpretation) (10/28/2019 12:00 AM EDT) Other Narrative PERCIPIO_BWH - 12/05/2019 2:02 PM EDT This study is for PACS storage only and not for interpretation. us Cristo Santiago MD IMG OUTSIDE IMAGING W/OUT I NTERPRETATION Final Result Performing Organization Address [facility] de Phone Number ROSINA_ANDREWH * CT Abdomen/Pelvis Outside (No Interpretation) (04/11/2019 12:00 AM EST) Other Narrative PERCIPIO_DFCI - 12/05/2019 2:02 PM EDT This study is for PACS storage only and not for interpretation. us Cristo Santiago MD IMG OUTSIDE IMAGING W/OUT I NTERPRETATION Final Result Performing Organization Address [facility] de Phone Number [email or web address] * CT Chest Outside (No Interpretation) (08/27/2018 12:00 AM EDT) Other Narrative PERCIPCHAPO_BW - 12/05/2019 2:02 PM EDT This study is for PACS storage only and not for interpretation. us Cristo Santiago MD IMG OUTSIDE IMAGING W/OUT I NTERPRETATION Final Result Performing Organization Address City/[facility] Co de Phone Number ROSINA_MARIO documented in this encounter Visit Diagnoses Not on filedocumented in this encounter Care Teams Manager Parking Relationship Specialty Start Date End Date Micky Weeks MD [address] [place] [address] Dr [place], [place] [address] PCP - General Internal Medicine 11/04/19 Micky Weeks MD [address] [place] [address] [place] [address] Internal Medicine 11/04/19 Kailey Zaragoza MD [address] [place] [id number] [email or web address] Referring Physician Hematology and Oncology 11/25/19 Cristo Santiago MD [address] [place] [address] [address] [place] [address] [email or web address] Primary Oncologist Medical Oncology 11/27/19 Self-Referred, Patient 12/02/19 documented as of this encounter Additional Source Comments The information contained in this document represents components of the legal health record. It is not the complete legal health record.[facility]
--- OUTSIDE RECORDS SUMMARY | 2025-04-15 18:04 | XMS_ITS | Clinical Summary ---
Author Organization [facility] Address [address] [place] [address] Phone Care Team Providers Care Ship Captain Name Role Phone Micky Weeks MD Unavailable [phone] Micky Weeks MD Primary Care Provider Kailey Zaragoza MD Unavailable [phone] Cristo Santiago MD Unavailable [phone] Self-Referred, Patient Unavailable Unavailab le Allergies No [...] Medical Devices Not on file Insurance # [address] [place] [id number] [facility] NON NSPG PCP [employer] [facility] NON NSPG PCP [employer] [facility] NON NSPG PCP [employer] NON NSPG PCP [employer] # [address] [place] [phone] [employer] NON NSPG PCP S[employer] NON NSPG PCP [employer] # [address] [place] [id number] [employer] NON NSPG PCP S[employer] # [address] [place] [id number] [employer] NON NSPG PCP S[employer] # [address] [place] [id number] [employer] NON NSPG PCP [employer] Care Teams Ship Captain Relationship Specialty Start Date End Date Micky Weeks MD [address] [place] [address] [place] [address] PCP - General Internal Medicine 6/23/20 Micky Weeks MD [address] [place] [address] Internal Medicine 11/04/19 Kailey Zaragoza MD [address] [place] [id number] [email or web address] Referring Physician Hematology and Oncology 11/25/19 Cristo Santiago MD [address] [place], [place] [address]robinson Dolly [address] [place] [address] [email or web address] Primary Oncologist Medical Oncology 11/27/19 Self-Referred, Patient 12/02/19 Additional Source Comments The information contained in this document represents components of the legal health record. It is not the complete legal health record.[facility]
== END 2025-04-15 15:26 | disposition home or self-care (01) ==
LOC: HO.HMCHD 15:03
PROVIDERS: PCP Student in an Organized Health Care Education/Training Program; Visit Provider Student in an Organized Health Care Education/Training Program
DX: I10 Essential (primary) hypertension (principal); C61 Malignant neoplasm of prostate; C18.2 Malignant neoplasm of ascending colon; C77.2 Secondary and unspecified malignant neoplasm of intra-abdominal lymph nodes; I27.82 Chronic pulmonary embolism

== ENCOUNTER → 2025-04-15 15:03 | Outpatient (BNVA) | payer OTHER, SELFPAY | PROVIDERS: PCP Student in an Organized Health Care Education/Training Program; Visit Provider Student in an Organized Health Care Education/Training Program | DX: I10 Essential (primary) hypertension (principal); C18.2 Malignant neoplasm of ascending colon; C77.2 Secondary and unspecified malignant neoplasm of intra-abdominal lymph nodes; I27.82 Chronic pulmonary embolism; C61 Malignant neoplasm of prostate; Z13.31 Encounter for screening for depression; Z13.39 Encounter for screening examination for other mental health and behavioral disorders | CPT/HCPCS: 96127; 99212 ==

== ENCOUNTER 2025-04-24 13:48 | Outpatient (AMB) | payer OTHER, SELFPAY ==
--- NOTE | 2025-04-24 13:48 | A.OFFVIS_ITS ---
Intake Visit Reasons: 3w follow up Onc Evaluation(set) Intake Note: Reason for Visit: Evaluation Follow Up Urology Meds: Elikaylah Blood Thinners: None Labs: 01/05/25 PSA- 3.20 Testosterone: 13 Imaging: Abdomen/Pelvis CT- 04/08/25 Last PVR: None Instructional Technology Specialist Required: No Accompanied by: Self / Same As Patient Allergies No Known Allergies (No Known Allergies*) Allergy (Verified 04/24/25 13:49) HPI Comments Details: Toney is a pleasant male. He is a patient of Dr. Weeks. He seen for the following urologic conditions - prostate cancer Telemedicine Evaluation 15 min Consultation [employer] Jelani Video Seen at [facility] radiation oncology for assessment Based on his impression they would like to have targeting seeds placed for 8 weeks of therapy This is consistent without using a gel barrier Outpatient Visicoil seed placement will be organized There is a repeat prostate MRI being performed Prostate MRI had shown organ confined disease and staging PET-CT was negative 04/07 [facility] 01/05 PSA 3.2 T 13 10/05 PSA 3.1 T 17 - [facility] given 07/08 1.25, T 20 [facility] - 04/06 Eligard six-month Prostate cancer low-grade, low volume, high-risk PSA 12/04 Past medical history complicated by colonic resection with chemotherapy and immunotherapy. Included FOLFOX and Keytruda High-risk PSA 11/04 58 Biopsy 12/04 Histologic type: Adenocarcinoma, acinar type Histologic grade: [place] score: 4+3=7 (left base medial 20%), 3+4=7 (left base lateral 60%, left mid lateral 20% and mid medial 20%, right base medial 15%), 3+3=6 (right apex medial 15%) % of tissue involved: 12% of all tissue examined Periprostatic fat inv.: Not identified Seminal vesicle inv.: Not identified Perineural inv: Not identified LVI: Not identified Staging PET-CT 03/06 - negative, uptake only in prostate. Prostate MRI 01/04 - 30 g prostate, chronic prostatitis, PI-RADS 4 anterior tumor. 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-abdominal lymph node Pulmonary emboli Hypertension Surgical History History of colonoscopy (~06/14/18) S/P right hemicolectomy Family History Father Throat cancer Mother Breast cancer Social History Household Members: None Housing: House Are you a primary healthcare applications analyst to a significant other at home: No Do you presently have visiting nurse or other home services: No Patient Tobacco Use Status: Never used Tobacco e-Cigarette/Vaping Use: Never Used service: No Current occupational status: employed Current occupation: teacher Cognitive needs: No Hearing needs: No Vision needs: No Review of Systems Const All systems reviewed & are unremarkable except as noted in HPI and below Reports no additional complaints Resp Reports no additional complaints GI Reports no additional complaints Reports as per HPI Musc Reports no additional complaints Physical Exam Telemedicine evaluation Appropriate responses Regular breathing rate and rhythm HEENT Head: Yes normal to inspection Ears: hearing grossly normal bilaterally Eyes General: appearance normal, both eyes and all related structures Neck Neck: Yes normal visual inspection Chest Chest palpation & inspection: normal inspection of the chest Resp Effort & Inspection: normal respiratory effort and able to speak in complete sentences Telehealth Telehealth Telehealth Platform: [employer] Location of provider rendering services: practice address Location of patient: address on file Patient Identification confirmed using: Name, : Yes Telehealth method: video Patient verbally consented to treatment: Yes Patient verbally consented to billing insurance company: Yes Patient informed of any privacy concerns related to visit: Yes Minutes spent on Phone/Video with Pt.: 15 Assessment & Plan Assessment & Plan (1) Adenocarcinoma of prostate: Comment: - The patient is stable on leuprolide hormonal therapy, which is managed by urology (Dr. Howell). - Will continue to follow specialist recommendations. Code(s): C61 - Malignant neoplasm of prostate Category: Medical Plan Risks, benefits and alternatives to therapy were discussed. These include but are not limited to infection, bleeding, damage to local organs and tissues, need for further interventions. Anesthetic risks regarding cardiac arrhythmia, blood clots, and potential mortality were discussed. The patient understands the typical recovery time and the outpatient nature of the procedure. After consideration of these risks the patient gives full informed consent and they wish to move ahead with the procedure. - outpatient visicoil placement Patient Instructions: This note is constructed using voice recognition software. While every effort has been made to ensure accuracy seamless tube drawer errors may have been included. Imaging studies, laboratory and physical exam results were discussed and reviewed in detail. No major barriers to patient understanding were identified. An opportunity to ask questions regarding the treatment plan was provided. All questions were answered. The patient expressed understanding and agreement with the above treatment plan. The patient is aware they should contact our office by phone for worsening of their current condition or the appearance of new urologic symptoms. Compliance is encouraged with any medications and followup testing that is ordered. It is a privilege to participate in the urologic care of your patient. If you have any questions or concerns regarding treatment for the above conditions, or other urologic issues, please do not hesitate to contact me. The office telephone contact is [phone]. Sincerely, Dr Navid Howell MD, M[facility] - Urology Compassionate Specialist Care for the Genitourinary System Coding Level of Care Code Tele Est Pt Level 3 (91622) Add On Problem Visit Only Diagnoses Adenocarcinoma of prostate C61
--- OUTSIDE RECORDS SUMMARY | 2025-04-24 19:14 | XMS_ITS | Patient Health Record ---
Author Organization [facility] Address [address] [place] [address] Care Team Providers Care Call Centre Supervisor Name Role Phone Micky (RETIRED) Micky CARDOZO Primary Care Provide r Unavailable Derrick Pandey Jr Unavailable NMIO STEINER Unavailable Unavailable Reason For Referral No Information Plan Of Treatment No Information Insurance Providers Payer Name Payer Address Payer Phone Subscriber Number Group Number Insured Name Patient Relationship to Insured Coverage Start Date Coverage End Date [facility] [address] [place] [phone] [id number] PATRICK TOTH Self - patient is the insured
--- OUTSIDE RECORDS SUMMARY | 2025-04-24 19:15 | XMS_ITS | Clinical Summary ---
Author Organization [facility] Address [address] [place] [address] Phone Care Team Providers Care Green Tire Inspector Name Role Phone Micky Weeks MD Unavailable [phone] Micky Weeks MD Primary Care Provider Kailey Zaragoza MD Unavailable [phone] Cristo Santiago MD Unavailable [phone] Self-Referred, Patient Unavailable Unavailab le Allergies No [...] Medical Devices Not on file Insurance # [address] [place] [id number] [facility] NON NSPG PCP [employer] [facility] NON NSPG PCP S[employer] [facility] NON NSPG PCP S[employer] CONNE[employer] NON NSPG PCP [employer] CONNE[employer]ARE # [address] [place] [id number] [employer] NON NSPG PCP S[employer] CONNE[employer] NON NSPG PCP [employer]CARE # [address] [place] [id number] [employer] NON NSPG PCP S[employer] # [address] [place] [id number] [employer] NON NSPG PCP S[employer] # [address] [place] [id number] [employer] NON NSPG PCP [employer] Care Teams Green Tire Inspector Relationship Specialty Start Date End Date Micky Weeks MD [address] [place] [address] [place] [address] PCP - General Internal Medicine 6/23/20 Micky Weeks MD [address] [place] [address] Internal Medicine 11/04/19 Kailey Zaragoza MD [address] [place] [address] [email or web address] Referring Physician Hematology and Oncology 11/25/19 Cristo Santiago MD [address] [place], [place] [address]robinson [address] [place] [address] [email or web address] Primary Oncologist Medical Oncology 11/27/19 Self-Referred, Patient 12/02/19 Additional Source Comments The information contained in this document represents components of the legal health record. It is not the complete legal health record.[facility]
--- OUTSIDE RECORDS SUMMARY | 2025-04-24 19:15 | XMS_ITS | Encounter Summary ---
Author Organization [facility] Address [address] [facility] [address] [place] [address] Phone Care Team Providers Care Industrial Energy Engineer Name Role Phone Micky Weeks MD Unavailable [phone] Micky Weeks MD Primary Care Provider Kailey Zaragoza MD Unavailable [phone] Cristo Santiago MD Unavailable [phone] Self-Referred, Patient Unavailable Unavailab le Encounter Details Date Type Department Care Team (Late st Contact Info) Description 12/05/2019 Orders Only Laboratory Services, [facility] [address] [facility] [place] [address] Cristo Santiago MD [address] [facility] [address] [place] [address] [email or web address] Social History Tobacco Use Types Packs/Day [...] I NTERPRETATION Final Result Performing Organization Address [facility] [[email or web address]] Co de Phone Number [email or web address] * CT Chest Outside (No Interpretation) (10/28/2019 12:00 AM EDT) Other Narrative PERCIPIO_BWH - 12/05/2019 2:02 PM EDT This study is for PACS storage only and not for interpretation. us Cristo Santiago MD IMG OUTSIDE IMAGING W/OUT I NTERPRETATION Final Result Performing Organization Address [facility] de Phone Number ROSINA_ANDREWH * CT Abdomen/Pelvis Outside (No Interpretation) (04/11/2019 12:00 AM EST) Other Narrative PERCIPIO_DFCI - 12/05/2019 2:02 PM EDT This study is for PACS storage only and not for interpretation. us Cristo Santiago MD IMG OUTSIDE IMAGING W/OUT I NTERPRETATION Final Result Performing Organization Address [facility] de Phone Number [email or web address]_[email or web address] * CT Chest Outside (No Interpretation) (08/27/2018 12:00 AM EDT) Other Narrative PERCIPCHAPO_BW - 12/05/2019 2:02 PM EDT This study is for PACS storage only and not for interpretation. us Cristo Santiago MD IMG OUTSIDE IMAGING W/OUT I NTERPRETATION Final Result Performing Organization Address City/[facility] [[email or web address]] Co de Phone Number ROSINA_MARIO documented in this encounter Visit Diagnoses Not on filedocumented in this encounter Care Teams Industrial Energy Engineer Relationship Specialty Start Date End Date Micky Weeks MD [address] [place] [address] Dr [place], [place] [address] PCP - General Internal Medicine 11/04/19 Micky Weeks MD [address] [place] [address] [facility] [place] [address] Internal Medicine 11/04/19 Kailey Zaragoza MD [address] [place] [address] [email or web address] Referring Physician Hematology and Oncology 11/25/19 Cristo Santiago MD [address] [place] [address] [address] [place] [address] [email or web address] Primary Oncologist Medical Oncology 11/27/19 Self-Referred, Patient 12/02/19 documented as of this encounter Additional Source Comments The information contained in this document represents components of the legal health record. It is not the complete legal health record.[facility]
--- OUTSIDE RECORDS SUMMARY | 2025-04-24 19:15 | XMS_ITS | Clinical Summary ---
Author Organization [facility] Address [address] [place] [address] Care Team Providers Care Cloth Dyeing Range Tender Name Role Phone Micky Weeks Primary Care Provider [phone] Social History Tobacco Use Types Packs/Day Years [...] 04/06/2021, 09/04/2020, 08/07/2020 Insurance [id number] [place] [address] [id number] [facility] MEDICAID Care Teams Cloth Dyeing Range Tender Relationship Specialty Start Date End Date Micky Weeks [address] [place] [address] [place] [id number] PCP - General Internal Medicine 12/25/23
== END 2025-04-24 15:35 | disposition home or self-care (01) ==
LOC: HO.HUSH 13:48
PROVIDERS: PCP Student in an Organized Health Care Education/Training Program; Visit Provider Urology
DX: C61 Malignant neoplasm of prostate (principal)
CPT/HCPCS: 99213